=== PATIENT | female | born 1990 | race African-American/Black ===

== ENCOUNTER 2021-03-19 08:31 | Emergency (ER) | payer OTHER, SELFPAY ==
--- OUTSIDE RECORDS SUMMARY | 2021-03-19 08:37 | XMS REPORT | Continuity of Care Document ---
:1990 Author Organization [facility] t Address [address] [place] [address] Care Team Providers Name Role Phone G_Desmond Attending Clinician Unavailable Sandy RABAGO, M Attending Clinician Unavailable Only, Test Attending Clinician Unavailable Siva OTTO, A Attending Clinician SIVA, Allison Attending Clinician Unavailable Doctor Unassigned, Name Attending Clinician Unavailable LEO Attending Clinician Unavailable Holly_Desmond Admitting Clinician Unavailable LEO Admitting Clinician Unavailable Payers Payer Name Policy Type Policy Number Effective Date Expiration Date S ede [place] - [id number] WOMEN'S HE[employer] PROGRAM (MEDICAID) [facility] [id number] 2018 CHOICE (MEDICAID 00:00:00 REPLACEMENT - HMO) Problems Condition Condition Condition Status Onset Resolution Last Treating Co mments Source Name Details Category Date Date Treatment Clinician Date Insertion Insertion Problem Active 2018-03 [place] of of 04-12 da subcutaneo Subcutaneo 00:00: Me dical us us 00 Group contracept Contracept surinder surinder 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 9- da y of y of 00:00: Medical bladder Bladder 00 Group Allergies, Adverse Reactions, Alerts Allergy Allergy Status Severity Reaction(s) Onset Inactive Treating Comm ents Source Name Type Date Date Clinician No Known DA Active U [facility] Allergie 4-22 [facility] 00:[facility]: [facility] 00 l [facility] [place] NO KNOWN Drug Active Univers ALLERGIE Class ity of S [facility] Social History Social Habit Start Date Stop Date Quantity Comments Source Exposure to Not sure [facility] SARS-CoV-2 [facility] (event) Branch Sex Assigned At [facility] y of [facility] Tobacco use and 2018-01-14 2018-01-14 Never used [facility] y of exposure 00:00:00 00:00:00 [facility] Alcohol intake 2018-01-14 2018-01-14 Current [facility] 00:00:00 00:00:00 non-drinker of [facility] alcohol Branch (finding) Smoking Status Start Date Stop Date Source Never smoker [facility] Medications Ordered Filled Start Stop Current Ordering Indication Dosage Frequency Signature Comments Components Source Medication Medication Date Date Medication? Clinician (SIG) Name Name LOESTRIN FE 2017-03 Yes 1{tbl} Take 1 Un lisbeth (LOESTRIN 0-25 tablet by ity o f FE 04/11) 1 00:00: mouth [place] mg-20 mcg 00 daily. Medical (21)/75 mg Branch (7) tablet LOESTRIN FE 2017-03 Yes 1{tbl} Take 1 Un lisbeth (LOESTRIN 0-25 tablet by ity o f FE 04/11) 1 00:00: mouth [place] mg-20 mcg 00 daily. Medical (21)/75 mg Branch (7) tablet LOESTRIN FE 2017-03 Yes 1{tbl} Take 1 Un lisbeth (LOESTRIN 0-25 tablet by ity o f FE 04/11) 1 00:00: mouth [place] mg-20 mcg 00 daily. Medical (21)/75 mg Branch (7) tablet INTEGRA F Yes [facility] 125-1-40-3 8-22 ity of mg Cap 00:00: [place] 00 Medical Branch INTEGRA F Yes [facility] 125-1-40-3 8-22 ity of mg Cap 00:00: [place] 00 Medical Branch INTEGRA F 2018-0 Yes [facility] 125-1-40-3 8-22 ity of mg Cap 00:00: [place] 00 Medical Branch Nexplanon Nexplanon No 1implan Nexplanon [place] 68 mg 68 mg t(s) 68 mg da subdermal subdermal subdermal Medical implant implant implant Group Inject 1 Inject 1 Inject 1 implant by implant by implant by subcutaneou subcutaneou subcutaneo s route. s route. us route. Immunizations Ordered Filled Immunization Date Status Comments Sourc e Immunization Name Name Influenza Virus 2018-01-14 Completed Universit y of Vaccine Quad .5 mL 00:00:00 [facility] 6+ MO Branch Influenza Virus 2018-01-14 Completed Universit y of Vaccine Quad .5 mL 00:00:00 [facility] 6+ MO Branch Influenza Virus 2018-01-14 Completed Universit y of Vaccine Quad .5 mL 00:00:00 [facility] 6+ MO Branch Vital Signs Vital Name Observation Time Observation Value Comments Source BP Diastolic 2020-10-12 00:00:00 115 mm[Hg] [facility] Height 2020-10-12 00:00:00 66 [in_i] [facility] BMI (Body Mass 2020-10-12 00:00:00 27.6 kg/m2 [facility] Medical Index) Group BP Systolic 2020-10-12 00:00:00 150 mm[Hg] [facility] Body Weight 2020-10-12 00:00:00 170.8 [lb_av] [facility] BMI (Body Mass 2020-10-08 00:00:00 27.7 kg/m2 [facility] Medical Index) Group BP Systolic 2020-10-08 00:00:00 121 mm[Hg] [facility] Body Weight 2020-10-08 00:00:00 171.6 [lb_av] [facility] BP Diastolic 2020-10-08 00:00:00 78 mm[Hg] [facility] Height 2020-10-08 00:00:00 66 [in_i] [facility] BP Diastolic 2019-02-09 00:00:00 83 mm[Hg] [facility] Height 2019-02-09 00:00:00 66 [in_i] [facility] BMI (Body Mass 2019-02-09 00:00:00 31.3 kg/m2 [facility] Medical Index) Group BP Systolic 2019-02-09 00:00:00 133 mm[Hg] [facility] Body Weight 2019-02-09 00:00:00 194 [lb_av] [facility] BP Diastolic 2019-01-10 00:00:00 100 mm[Hg] [facility] Height 2019-01-10 00:00:00 66 [in_i] [facility] BMI (Body Mass 2019-01-10 00:00:00 30.5 kg/m2 [facility] Medical Index) Group BP Systolic 2019-01-10 00:00:00 138 mm[Hg] [facility] Body Weight 2019-01-10 00:00:00 189 [lb_av] [facility] BP Diastolic 2018-12-07 00:00:00 83 mm[Hg] [facility] Height 2018-12-07 00:00:00 66 [in_i] [facility] BP Systolic 2018-12-07 00:00:00 126 mm[Hg] [facility] Body Weight 2018-12-07 00:00:00 203 [lb_av] [facility] BP Diastolic 2018-11-30 00:00:00 86 mm[Hg] [facility] Height 2018-11-30 00:00:00 66 [in_i] [facility] BMI (Body Mass 2018-11-30 00:00:00 33.2 kg/m2 [facility] Medical Index) Group BP Systolic 2018-11-30 00:00:00 134 mm[Hg] [facility] Body Weight 2018-11-30 00:00:00 206 [lb_av] [facility] BP Diastolic 2018-11-24 00:00:00 79 mm[Hg] [facility] Height 2018-11-24 00:00:00 66 [in_i] [facility] BMI (Body Mass 2018-11-24 00:00:00 32.7 kg/m2 [facility] housing officer Medical Index) Group BP Systolic 2018-11-24 00:00:00 113 mm[Hg] [facility] Body Weight 2018-11-24 00:00:00 202.9 [lb_av] [facility] BP Diastolic 2018-11-23 00:00:00 80 mm[Hg] [facility] Height 2018-11-23 00:00:00 66 [in_i] [facility] BMI (Body Mass 2018-11-23 00:00:00 33 kg/m2 [facility] housing officer Medical Index) Group BP Systolic 2018-11-23 00:00:00 129 mm[Hg] [facility] Body Weight 2018-11-23 00:00:00 204.3 [lb_av] [facility] BP Diastolic 2018-11-16 00:00:00 71 mm[Hg] [facility] Height 2018-11-16 00:00:00 66 [in_i] [facility] BMI (Body Mass 2018-11-16 00:00:00 33.2 kg/m2 [facility] housing officer Medical Index) Group BP Systolic 2018-11-16 00:00:00 132 mm[Hg] [facility] Body Weight 2018-11-16 00:00:00 205.9 [lb_av] [facility] BP Diastolic 2018-11-09 00:00:00 83 mm[Hg] [facility] Height 2018-11-09 00:00:00 66 [in_i] [facility] BMI (Body Mass 2018-11-09 00:00:00 33.1 kg/m2 [facility] housing officer Medical Index) Group BP Systolic 2018-11-09 00:00:00 141 mm[Hg] [facility] Body Weight 2018-11-09 00:00:00 205.3 [lb_av] [facility] BP Diastolic 2018-10-26 00:00:00 72 mm[Hg] [facility] Height 2018-10-26 00:00:00 66 [in_i] [facility] BP Systolic 2018-10-26 00:00:00 118 mm[Hg] [facility] Body Weight 2018-10-26 00:00:00 200.1 [lb_av] [facility] BP Diastolic 2018-10-12 00:00:00 82 mm[Hg] [facility] Height 2018-10-12 00:00:00 66 [in_i] [facility] BMI (Body Mass 2018-10-12 00:00:00 32[facility]3 [facility] BP Systolic 2018-10-12 00:00:00 117 mm[Hg] [facility] Body Weight 2018-10-12 00:00:00 200 [lb_av] [facility] BP Diastolic 2018-09-28 00:00:00 70 mm[Hg] [facility] Height 2018-09-28 00:00:00 66 [in_i] [facility] BMI (Body Mass 2018-09-28 00:00:00 32 [facility] BP Systolic 2018-09-28 00:00:00 138 mm[Hg] [facility] Body Weight 2018-09-28 00:00:00 198 [lb_av] [facility] BP Diastolic 2018-09-21 00:00:00 72 mm[Hg] [facility] Height 2018-09-21 00:00:00 66 [in_i] [facility] BMI (Body Mass 2018-09-21 00:00:00 32 [facility] BP Systolic 2018-09-21 00:00:00 117 mm[Hg] [facility] Body Weight 2018-09-21 00:00:00 198 [lb_av] [facility] Procedures Procedure Date / Time Performed Performing Clinician [facility] ASSIGNMENT OF BENEFITS 2020-02-14 20:17:44 Doctor Unassigned, No [facility] US, obstetric, limited 2018-11-30 00:00[facility], [facility] 2018-11-23 00:00:00 [facility] ULTRASOUND REPEAT 2018-09-28 00:00:00 [facility] Encounters Start End Encounter Admission Attending Care Care Encounter Source Date/Time Date/Time Type Type Clinicians Facility Department ID 2020-10-12 2020-10-12 Outpatient G_Pappas [facility] 2020 [place] 10:43:00 10:43:00 0723 [facility] 2020-10-12 2020-10-12 Toni CHONG [place] - [id number] M atagoelisa 00:00:00 00:00:00 Discovery malathi Logan MD: [address] [facility] [address] [address] , Ph. [phone] 2020-10-08 2020-10-08 Outpatient G_Pappas [facility] 2020 [place] 04:10:00 04:10:00 0719 [facility] 2020-10-08 2020-10-08 Toni CHONG [place] - [id number] M derek 00:00:00 00:00:00 Discovery malathi Logan MD: [address] [facility] [address] [address] , Ph. [phone] 2020-10-02 2020-10-02 Outpatient G_Pappas [facility] 2020 [place] 10:38:00 10:38:00 0713 [facility] 2020-09-25 2020-09-25 Outpatient G_Pappas [facility] 2020 [place] 09:52:00 09:52:00 0706 [facility] 2020-05-04 2020-05-04 Outpatient G_Pappas [facility] 2020 [place] 11:00:00 11:00:00 [id number] [facility] 2020-03-08 2020-03-08 Outpatient G_Pappas [facility] 2019 [place] 09:39:00 09:39:00 1217 [facility] 2020-02-15 2020-02-15 Telephone Stella Delgado [id number] [facility] 00:00:00 00:00:00 ROSCOE [id number] [facility] [id number] Manuelito as [id number] [facility] 019 Branch 2020-02-14 2020-02-14 Laboratory Only, Adc Test [facility] [id number] Univers 14:21:32 14:36:32 Only Ronald Paniagua [id number] ity [facility] [id number] [facility] [id number] [facility] 353 Branch 2020-02-14 2020-02-14 Outpatient R [facility] [id number] Univers 14:30:00 14:30:00 [id number] ity [facility] 2020-02-14 2020-02-14 Outpatient R PANIAGUA [facility] [id number] Univers 14:30:00 14:30:00 RONALD [facility] 2020-02-14 2020-02-14 Orders Doctor GARCIA [id number] Univers 00:00:00 00:00:00 Only Unassigned, ROSCOE [id number] ity of [facility] [id number] Manuelito as [id number] [facility] 009 Branch 2020-02-08 2020-02-08 Outpatient G_Pappas [facility] 2019 [place] 02:42:00 02:42:00 1118 [facility] 2019-02-26 2019-02-26 Outpatient G_Pappas [facility] 2019 [place] 12:21:00 12:21:00 0326 [facility] 2019-02-26 2019-02-26 Outpatient G_Pappas MM MM 2019 [place] 12:21:00 12:21:00 0605 [facility] 2019-02-26 2019-02-26 Outpatient G_Pappas [facility] MM 2019 [place] 12:21:00 12:21:00 0608 [facility] 2019-02-26 2019-02-26 Outpatient G_Pappas [facility] 2019 [place] 12:21:00 12:21:00 0611 [facility] 2019-02-09 2019-02-09 Gissell Kearns [facility] [place] - [id number] [place] 00:00:00 00:00:00 Discovery malathi Stahl WHNP: [address] [facility] [address] [address] , Ph. [phone] 2019-02-07 2019-02-07 Outpatient [facility] 834 [place] 05:45:00 05:45:00 SSA 0609 da [facility] 2019-01-10 2019-01-10 Michelle MMG [place] - [id number] M atagor 00:00:00 00:00:00 Lyle Quinn Medical [facility] pranav MD: [address] [place] [address] , Ph. [phone] 2018-12-07 2018-12-07 Michelle [facility] [place] - [id number] M atagor 00:00:00 00:00:00 Lyle Quinn Medical Medicallison rock MD: [address] [place] [address] , Ph. [phone] 2018-11-30 2018-11-30 Michelle [facility] [place] - [id number] M atagor 00:00:00 00:00:00 Lyle Quinn Medical Med[facility] pranav OTTO: [address] [place] [address] , Ph. [phone] 2018-11-24 2018-11-24 Gissell Kearns [facility] [place] - [id number] [place] 00:00:00 00:00:00 Discovery Bassem StahlNP: [address] [facility] [address] [address] , Ph. [phone] 2018-11-23 2018-11-23 Gissell Kearns [facility] [place] - [id number] [place] 00:00:00 00:00:00 Discovery Favio da WHNP: [address] [facility] [address] [address] , Ph. [phone] 2018-11-16 2018-11-16 Michelle [facility] [place] - [id number] M at[place]or 00:00:00 00:00:00 Lyle Quinn Medical Medicallison rock MD: [address] [place] [address], [place] [address] , Ph. [phone] 2018-11-09 2018-11-09 Michelle [facility] [place] - [id number] M at[place]or 00:00:00 00:00:00 Lyle Quinn Medical Medica pranav MD: [address] [place] [address], [place] [address] , Ph. [phone] 2018-10-26 2018-10-26 [facility] [place] - [id number] M at[place] 00:00:00 00:00:00 Renee Martinez Medicallison rock MD: [address] [place] [address], [place] [address] , Ph. [phone] 2018-10-12 2018-10-12 [facility] [place] - [id number] M at[place] 00:00:00 00:00:00 Renee Martinez Medicallison rock MD: [address] [place] [address], [place] [address] , Ph. [phone] 2018-09-28 2018-09-28 [facility] [place] - [id number] M at[place] 00:00:00 00:00:00 Lyle Quinn Medical Medicallison rock MD: [address] [place] [address], [place] [address] , Ph. [phone] 2018-09-24 2018-09-24 [facility] [place] - [id number] M at[place] 00:00:00 00:00:00 Lyle Quinn Medical Medicallison rock MD: [address] [place] [address], [place] [address] , Ph. [phone] 2018-09-21 2018-09-21 Michelle [facility] [place] - [id number] M derek 00:00:00 00:00:00 Lyle Quinn, Medical Medica pranav OTTO: [address] [facility] [place], OBGYN [address], [place] [address] , Ph. [phone] Results Test Description Test Time Test Comments Results Result Comments Source pap, LB + HR HPV 2020-10-09 00:00:00 Test Item Value Reference Range Interpretation Comme nts TP highrisk HPV,16/18 (test code = TP highrisk HPV,16/18) normal HPV (test code = HPV) normal [facility]dipstick) panel - [id number] 15:50:00 Test Item Value Reference Range Interpretation Comments Leukocytes (test code = Leukocytes) Negative Nitrite (test code = Nitrite) negative Urobilinogen (test code = .2 Urobilinogen) Protein (test code = Protein) Trace pH (test code = pH) 5.5 Blood (test code = Blood) Negative Specific [place] (test code = 1.030 Specific [place]) Ketone (test code = Ketone) Small Bilirubin (test code = Bilirubin) Negative Glucose (test code = Glucose) Negative Appearance (test code = Appearance) Clear Color (test code = Color) Yellow [facility] macro (dipstick) panel - [id number] 15:50:00 Test Item Value Reference Range Interpretation Comments Leukocytes (test code = Leukocytes) Negative Nitrite (test code = Nitrite) negative Urobilinogen (test code = .2 Urobilinogen) Protein (test code = Protein) Trace pH (test code = pH) 5.5 Blood (test code = Blood) Negative Specific [place] (test code = 1.030 Specific [place]) Ketone (test code = Ketone) Small Bilirubin (test code = Bilirubin) Negative Glucose (test code = Glucose) Negative Appearance (test code = Appearance) Clear Color (test code = Color) Yellow [facility]lamydia trachomatis+Neisseria gonorrhoeae rRNA [Presence] in Unspecified specimen by [id number] 01:53:00 Test Item Value Reference Range Interpretation Comments Chlamydia sp Ag [Presence] in CT not detected Unspecified specimen (test code = 86816-4) [id number] (test code = fhl2755) NG not detected [facility], [id number] 14:53:50 Test Item Value Reference Range Interpretation Comments Test (test code = negative Test) [facility] W Auto Differential panel - [id number] 08:30:00 Test Item Value Reference Range Interpretation Comments white blood count (test code = 5.9 K/uL 4.0-11.5 white blood count) red blood count (test code = red 4.63 M/uL 3.80-5.20 blood count) hemoglobin (test code = 11.1 g/dL 10.5-15.7 hemoglobin) hematocrit (test code = 36.9 % 34.0-50.0 hematocrit) Erythrocyte mean corpuscular 79.7 fL 86-100 L volume [Entitic volume] (test code = 63100-6) mean corpuscular hemoglobin (test 24.0 pg 26.2-33.4 L code = mean corpuscular hemoglobin) mean corpuscular HGB conc (test 30.1 g/dL 30-34 code = mean corpuscular HGB conc) red cell distribution width (test 15.7 % 12.0-15.5 H code = red cell distribution width) platelet count (test code = 223 K/uL 165-450 platelet count) mean platelet volume (test code = 13.6 fL 9.4-12.6 H mean platelet volume) Neutrophils.segmented/100 60.7 % 44.4-80.1 leukocytes in Blood (test code = 25028-2) Granulocytes Immature [#/volume] 0.0 K/uL 0.0-0.03 in Blood (test code = 15238-2) lymphocyte% (test code = 28.6 % 10.0-50.0 lymphocyte%) mono % (test code = mono %) 6.8 % 3.6-12.0 eos % (test code = eos %) 3.2 % 0.0-5.4 Basophils/100 leukocytes in 0.5 % 0.1-1.2 Unspecified specimen (test code = 27044-6) Neutrophils.band form [#/volume] 3.57 K/uL 1.56-6.13 in Blood (test code = 68534-2) Lymphocytes [#/volume] in 1.7 K/uL 1.18-3.74 Unspecified specimen by Automated count (test code = 67640-6) mono # (test code = mono #) 0.40 K/uL 0.24-0.86 eos # (test code = eos #) 0.19 K/uL 0.04-0.36 basophil # (test code = basophil 0.03 K/uL 0.01-0.08 #) NRBC% (test code = NRBC%) 0 /100 WBC 0-0.2 NRBC# (test code = NRBC#) 0 K/uL [facility] panel, [id number] 08:30:00 NeutrophilsBandLymphocyteAtypical LymphMonocyteEosinophilBasophilMetamyelocyteMyelocytePlatelet EstimatePlatelet MorphologyHypochromasiaAnisocytosisMacrocytosisToxic GranulationToxic VacuolationField [facility] W Auto Differential panel - Blood 2018-12-09 10:17:00 Test Item Value Reference Range Interpretation Comments white blood count (test code = 10.9 K/uL 4.0-11.5 white blood count) red blood count (test code = red 3.40 M/uL 3.80-5.20 L blood count) hemoglobin (test code = 8.8 g/dL 10.5-15.7 L hemoglobin) hematocrit (test code = 27.4 % 34.0-50.0 L hematocrit) Erythrocyte mean corpuscular 80.6 fL 86-100 L volume [Entitic volume] (test code = 69064-8) mean corpuscular hemoglobin (test 25.9 pg 26.2-33.4 L code = mean corpuscular hemoglobin) mean corpuscular HGB conc (test 32.1 g/dL 30-34 code = mean corpuscular HGB conc) red cell distribution width (test 13.8 % 12.0-15.5 code = red cell distribution width) platelet count (test code = 160 K/uL 165-450 L platelet count) mean platelet volume (test code = 12.8 fL 9.4-12.6 H mean platelet volume) Neutrophils.segmented/100 76.1 % 44.4-80.1 leukocytes in Blood (test code = 02265-2) Granulocytes Immature [#/volume] 0.0 K/uL 0.0-0.03 in Blood (test code = 64187-8) lymphocyte% (test code = 14.6 % 10.0-50.0 lymphocyte%) mono % (test code = mono %) 7.3 % 3.6-12.0 eos % (test code = eos %) 1.3 % 0.0-5.4 Basophils/100 leukocytes in 0.4 % 0.1-1.2 Unspecified specimen (test code = 76893-8) Neutrophils.band form [#/volume] 8.32 K/uL 1.56-6.13 H in Blood (test code = 14461-9) Lymphocytes [#/volume] in 1.6 K/uL 1.18-3.74 Unspecified specimen by Automated count (test code = 15527-8) mono # (test code = mono #) 0.80 K/uL 0.24-0.86 eos # (test code = eos #) 0.14 K/uL 0.04-0.36 basophil # (test code = basophil 0.04 K/uL 0.01-0.08 #) NRBC% (test code = NRBC%) 0 /100 WBC 0-0.2 NRBC# (test code = NRBC#) 0 K/uL [facility] W Auto Differential panel - [id number] 10:17:00 Test Item Value Reference Range Interpretation Comments white blood count (test code = 10.9 K/uL 4.0-11.5 white blood count) red blood count (test code = red 3.40 M/uL 3.80-5.20 L blood count) hemoglobin (test code = 8.8 g/dL 10.5-15.7 L hemoglobin) hematocrit (test code = 27.4 % 34.0-50.0 L hematocrit) Erythrocyte mean corpuscular 80.6 fL 86-100 L volume [Entitic volume] (test code = 99370-6) mean corpuscular hemoglobin (test 25.9 pg 26.2-33.4 L code = mean corpuscular hemoglobin) mean corpuscular HGB conc (test 32.1 g/dL 30-34 code = mean corpuscular HGB conc) red cell distribution width (test 13.8 % 12.0-15.5 code = red cell distribution width) platelet count (test code = 160 K/uL 165-450 L platelet count) mean platelet volume (test code = 12.8 fL 9.4-12.6 H mean platelet volume) Neutrophils.segmented/100 76.1 % 44.4-80.1 leukocytes in Blood (test code = 20854-2) Granulocytes Immature [#/volume] 0.0 K/uL 0.0-0.03 in Blood (test code = 70784-2) lymphocyte% (test code = 14.6 % 10.0-50.0 lymphocyte%) mono % (test code = mono %) 7.3 % 3.6-12.0 eos % (test code = eos %) 1.3 % 0.0-5.4 Basophils/100 leukocytes in 0.4 % 0.1-1.2 Unspecified specimen (test code = 09363-7) Neutrophils.band form [#/volume] 8.32 K/uL 1.56-6.13 H in Blood (test code = 80703-0) Lymphocytes [#/volume] in 1.6 K/uL 1.18-3.74 Unspecified specimen by Automated count (test code = 68045-7) mono # (test code = mono #) 0.80 K/uL 0.24-0.86 eos # (test code = eos #) 0.14 K/uL 0.04-0.36 basophil # (test code = basophil 0.04 K/uL 0.01-0.08 #) NRBC% (test code = NRBC%) 0 /100 WBC 0-0.2 NRBC# (test code = NRBC#) 0 K/uL [facility] complete panel - [id number] 12:50:00 Test Item Value Reference Range Interpretation Comments Color of Urine by Auto light yellow (test code = 34208-2) Appearance of Urine (test clear clear code = 5767-9) Glucose [Presence] in negative negative Urine by Automated test strip (test code = 54395-0) Bilirubin.total negative negative [Mass/volume] in Urine (test code = 1977-) Ketones [Mass/volume] in negative negative Urine by Automated test strip (test code = 79435-1) Specific gravity of Urine 1.021 1.003-1.030 by Automated test strip (test code = 17449-9) blood urine (test code = negative negative blood urine) pH of Urine (test code = 7.000 5-9 2756-5) protein urine (UA) (test trace negative code = protein urine (UA)) Urobilinogen [Presence] =2.0 0.2-1.0 H in Urine (test code = 60298-2) Nitrite [Presence] in negative negative Urine by Test strip (test code = 5802-4) Leukocyte esterase =2 negative H [Presence] in Urine by Automated test strip (test code = 86369-3) Erythrocytes [#/volume] <1 0-5 in Urine by Automated count (test code = 798-9) Leukocytes [#/area] in =11-14 0-5 H Urine sediment by Automated count (test code = 23752-0) Epithelial cells =6-10 0-5 [Presence] in Urine sediment by Light microscopy (test code = 73909-9) Bacteria identified in large (3 none detect H Urine by Culture (test code = 630-4) Casts [#/area] in Urine =6-10 none detect H sediment by Automated count (test code = 51119-2) urine culture added? yes (test code = urine culture added?) path casts,U (test code = fine granular (6-10 none detect A path casts,U) [facility] Urine by [id number] 12:50:00Bacteria Ur [facility] GroupUrinalysis complete panel - Urine 2018-12-08 12:50:00 Test Item Value Reference Range Interpretation Comments Color of Urine by Auto light yellow (test code = 27682-8) Appearance of Urine (test clear clear code = 5767-9) Glucose [Presence] in negative negative Urine by Automated test strip (test code = 70479-8) Bilirubin.total negative negative [Mass/volume] in Urine (test code = 1977-08) Ketones [Mass/volume] in negative negative Urine by Automated test strip (test code = 87703-4) Specific gravity of Urine 1.021 1.003-1.030 by Automated test strip (test code = 49319-8) blood urine (test code = negative negative blood urine) pH of Urine (test code = 7.000 5-9 2756-5) protein urine (UA) (test trace negative code = protein urine (UA)) Urobilinogen [Presence] =2.0 0.2-1.0 H in Urine (test code = 15165-1) Nitrite [Presence] in negative negative Urine by Test strip (test code = 5802-4) Leukocyte esterase =2 negative H [Presence] in Urine by Automated test strip (test code = 51546-8) Erythrocytes [#/volume] <1 0-5 in Urine by Automated count (test code = 798-9) Leukocytes [#/area] in =11-14 0-5 H Urine sediment by Automated count (test code = 06586-4) Epithelial cells =6-10 0-5 [Presence] in Urine sediment by Light microscopy (test code = 80002-1) Bacteria identified in large (3 none detect H Urine by Culture (test code = 630-4) Casts [#/area] in Urine =6-10 none detect H sediment by Automated count (test code = 65503-0) urine culture added? yes (test code = urine culture added?) path casts,U (test code = fine granular (6-10 none detect A path casts,U) [facility] Urine by [id number] 12:50:00Bacteria Ur [facility] W Auto Differential panel - [id number] 10:05:00 Test Item Value Reference Range Interpretation Comments white blood count (test code = 9.1 K/uL 4.0-11.5 white blood count) red blood count (test code = red 4.03 M/uL 3.80-5.20 blood count) hemoglobin (test code = 10.1 g/dL 10.5-15.7 L hemoglobin) hematocrit (test code = 31.7 % 34.0-50.0 L hematocrit) Erythrocyte mean corpuscular 78.7 fL 86-100 L volume [Entitic volume] (test code = 10117-8) mean corpuscular hemoglobin (test 25.1 pg 26.2-33.4 L code = mean corpuscular hemoglobin) mean corpuscular HGB conc (test 31.9 g/dL 30-34 code = mean corpuscular HGB conc) red cell distribution width (test 13.7 % 12.0-15.5 code = red cell distribution width) platelet count (test code = 164 K/uL 165-450 L platelet count) mean platelet volume (test code = 12.0 fL 9.4-12.6 mean platelet volume) Neutrophils.segmented/100 77.8 % 44.4-80.1 leukocytes in Blood (test code = 44243-1) Granulocytes Immature [#/volume] 0.0 K/uL 0.0-0.03 in Blood (test code = 25582-4) lymphocyte% (test code = 14.3 % 10.0-50.0 lymphocyte%) mono % (test code = mono %) 6.8 % 3.6-12.0 eos % (test code = eos %) 0.5 % 0.0-5.4 Basophils/100 leukocytes in 0.3 % 0.1-1.2 Unspecified specimen (test code = 07009-0) Neutrophils.band form [#/volume] 7.09 K/uL 1.56-6.13 H in Blood (test code = 70110-1) Lymphocytes [#/volume] in 1.3 K/uL 1.18-3.74 Unspecified specimen by Automated count (test code = 65132-0) mono # (test code = mono #) 0.62 K/uL 0.24-0.86 eos # (test code = eos #) 0.05 K/uL 0.04-0.36 basophil # (test code = basophil 0.03 K/uL 0.01-0.08 #) NRBC% (test code = NRBC%) 0 /100 WBC 0-0.2 NRBC# (test code = NRBC#) 0 K/uL [facility] type and Indirect antibody screen panel - Blood 2018-12-08 10:05:00 Test Item Value Reference Range Interpretation Comments Rh [Type] in Blood (test code = 3+ 40550-1) ABO and Rh group panel - Blood O positive (test code = 06751-4) [facility] HospitalReagin Ab [Presence] in Serum by [id number] 10:05:00 Test Item Value Reference Range Interpretation Comments Reagin Ab [Presence] in Serum by nonreactive nonreactive RPR (test code = 38257-1) [facility] HospitalHepatitis B virus surface Ag [Presence] in Serum 2018-12-08 10:05:00 Test Item Value Reference Range Interpretation Comments .hepatitis B surface antigen (test negative negative code = .hepatitis B surface antigen) [facility] W Auto Differential panel - [id number] 10:05:00 Test Item Value Reference Range Interpretation Comments white blood count (test code = 9.1 K/uL 4.0-11.5 white blood count) red blood count (test code = red 4.03 M/uL 3.80-5.20 blood count) hemoglobin (test code = 10.1 g/dL 10.5-15.7 L hemoglobin) hematocrit (test code = 31.7 % 34.0-50.0 L hematocrit) Erythrocyte mean corpuscular 78.7 fL 86-100 L volume [Entitic volume] (test code = 23478-2) mean corpuscular hemoglobin (test 25.1 pg 26.2-33.4 L code = mean corpuscular hemoglobin) mean corpuscular HGB conc (test 31.9 g/dL 30-34 code = mean corpuscular HGB conc) red cell distribution width (test 13.7 % 12.0-15.5 code = red cell distribution width) platelet count (test code = 164 K/uL 165-450 L platelet count) mean platelet volume (test code = 12.0 fL 9.4-12.6 mean platelet volume) Neutrophils.segmented/100 77.8 % 44.4-80.1 leukocytes in Blood (test code = 86342-3) Granulocytes Immature [#/volume] 0.0 K/uL 0.0-0.03 in Blood (test code = 48878-1) lymphocyte% (test code = 14.3 % 10.0-50.0 lymphocyte%) mono % (test code = mono %) 6.8 % 3.6-12.0 eos % (test code = eos %) 0.5 % 0.0-5.4 Basophils/100 leukocytes in 0.3 % 0.1-1.2 Unspecified specimen (test code = 82353-6) Neutrophils.band form [#/volume] 7.09 K/uL 1.56-6.13 H in Blood (test code = 99001-5) Lymphocytes [#/volume] in 1.3 K/uL 1.18-3.74 Unspecified specimen by Automated count (test code = 99724-2) mono # (test code = mono #) 0.62 K/uL 0.24-0.86 eos # (test code = eos #) 0.05 K/uL 0.04-0.36 basophil # (test code = basophil 0.03 K/uL 0.01-0.08 #) NRBC% (test code = NRBC%) 0 /100 WBC 0-0.2 NRBC# (test code = NRBC#) 0 K/uL [facility] HospitalBlood type and Indirect antibody screen panel - Blood 2018-12-08 10:05:00 Test Item Value Reference Range Interpretation Comments Rh [Type] in Blood (test code = 3+ 53340-9) ABO and Rh group panel - Blood O positive (test code = 66925-7) [facility] HospitalReagin Ab [Presence] in Serum by [id number] 10:05:00 Test Item Value Reference Range Interpretation Comments Reagin Ab [Presence] in Serum by nonreactive nonreactive RPR (test code = 33101-3) [facility] HospitalHepatitis B virus surface Ag [Presence] in Serum 2018-12-08 10:05:00 Test Item Value Reference Range Interpretation Comments .hepatitis B surface antigen (test negative negative code = .hepatitis B surface antigen) [facility] HospitalUrinalysis macro (dipstick) panel - [id number] 09:20:00 Test Item Value Reference Range Interpretation Comments Leukocytes (test code = Small Leukocytes) Nitrite (test code = negative Nitrite) Urobilinogen (test code = 1 Urobilinogen) Protein (test code = Negative Protein) pH (test code = pH) 7.0 Blood (test code = Blood) Hemolyzed: Trace Specific [place] (test code 1.015 = Specific [place]) Ketone (test code = Ketone) Negative Bilirubin (test code = Negative Bilirubin) Glucose (test code = Negative Glucose) Appearance (test code = Clear Appearance) Color (test code = Color) Yellow [facility] HospitalUrinalysis macro (dipstick) panel - [id number] 09:20:00 Test Item Value Reference Range Interpretation Comments Leukocytes (test code = Small Leukocytes) Nitrite (test code = negative Nitrite) Urobilinogen (test code = 1 Urobilinogen) Protein (test code = Negative Protein) pH (test code = pH) 7.0 Blood (test code = Blood) Hemolyzed: Trace Specific [place] (test code 1.015 = Specific [place]) Ketone (test code = Ketone) Negative Bilirubin (test code = Negative Bilirubin) Glucose (test code = Negative Glucose) Appearance (test code = Clear Appearance) Color (test code = Color) Yellow [facility] HospitalUrinalysis macro (dipstick) panel - [id number] 14:55:00 Test Item Value Reference Range Interpretation Comments Leukocytes (test code = Leukocytes) Large Nitrite (test code = Nitrite) negative Urobilinogen (test code = .2 Urobilinogen) Protein (test code = Protein) Trace pH (test code = pH) 5.5 Blood (test code = Blood) Moderate Specific [place] (test code = 1.020 Specific [place]) Ketone (test code = Ketone) Negative Bilirubin (test code = Bilirubin) Negative Glucose (test code = Glucose) Negative Appearance (test code = Appearance) Clear Color (test code = Color) Yellow [facility] HospitalUrinalysis macro (dipstick) panel - [id number] 14:55:00 Test Item Value Reference Range Interpretation Comments Leukocytes (test code = Leukocytes) Large Nitrite (test code = Nitrite) negative Urobilinogen (test code = .2 Urobilinogen) Protein (test code = Protein) Trace pH (test code = pH) 5.5 Blood (test code = Blood) Moderate Specific [place] (test code = 1.020 Specific [place]) Ketone (test code = Ketone) Negative Bilirubin (test code = Bilirubin) Negative Glucose (test code = Glucose) Negative Appearance (test code = Appearance) Clear Color (test code = Color) Yellow [facility] HospitalUr[facility]ysis macro (dipstick) panel - [id number] 10:46:04 Test Item Value Reference Range Interpretation Comments Leukocytes (test code = Leukocytes) Trace Nitrite (test code = Nitrite) negative Urobilinogen (test code = 1 Urobilinogen) Protein (test code = Protein) Negative pH (test code = pH) 7.0 Blood (test code = Blood) Negative Specific [place] (test code = 1.020 Specific [place]) Ketone (test code = Ketone) Negative Bilirubin (test code = Bilirubin) Negative Glucose (test code = Glucose) Negative Appearance (test code = Appearance) Clear Color (test code = Color) Yellow [facility] HospitalUr[facility]ysis macro (dipstick) panel - [id number] 10:46:04 Test Item Value Reference Range Interpretation Comments Leukocytes (test code = Leukocytes) Trace Nitrite (test code = Nitrite) negative Urobilinogen (test code = 1 Urobilinogen) Protein (test code = Protein) Negative pH (test code = pH) 7.0 Blood (test code = Blood) Negative Specific [place] (test code = 1.020 Specific [place]) Ketone (test code = Ketone) Negative Bilirubin (test code = Bilirubin) Negative Glucose (test code = Glucose) Negative Appearance (test code = Appearance) Clear Color (test code = Color) Yellow [facility] HospitalUrinalysis macro (dipstick) panel - [id number] 10:46:04 Test Item Value Reference Range Interpretation Comments Leukocytes (test code = Leukocytes) Trace Nitrite (test code = Nitrite) negative Urobilinogen (test code = 1 Urobilinogen) Protein (test code = Protein) Negative pH (test code = pH) 7.0 Blood (test code = Blood) Negative Specific [place] (test code = 1.020 Specific [place]) Ketone (test code = Ketone) Negative Bilirubin (test code = Bilirubin) Negative Glucose (test code = Glucose) Negative Appearance (test code = Appearance) Clear Color (test code = Color) Yellow [facility] HospitalUr[facility]ysis macro (dipstick) panel - [id number] 10:46:04 Test Item Value Reference Range Interpretation Comments Leukocytes (test code = Leukocytes) Trace Nitrite (test code = Nitrite) negative Urobilinogen (test code = 1 Urobilinogen) Protein (test code = Protein) Negative pH (test code = pH) 7.0 Blood (test code = Blood) Negative Specific [place] (test code = 1.020 Specific [place]) Ketone (test code = Ketone) Negative Bilirubin (test code = Bilirubin) Negative Glucose (test code = Glucose) Negative Appearance (test code = Appearance) Clear Color (test code = Color) Yellow [facility] HospitalUrinalysis complete panel - [id number] 04:20:00 Test Item Value Reference Range Interpretation Comments Color of Urine by Auto yellow (test code = 43437-6) Appearance of Urine (test SL cloudy clear A code = 5767-9) Glucose [Mass/volume] in negative negative Urine (test code = 2350-7) bilirubin, urine (test code small negative H = bilirubin, urine) Bilirubin [Presence] in negative negative Urine by Confirmatory method (test code = 53879-7) ketone, urine (test code = small, 15 negative H ketone, urine) Specific gravity of Urine 1.025 1.003-1.030 by Automated test strip (test code = 05716-7) Hemoglobin [Presence] in negative negative Urine by Test strip (test code = 5794-3) pH of Urine (test code = 6.500 5-9 2756-5) protein urine (UA) (test =1+ (30 negative H code = protein urine (UA)) Urobilinogen [Presence] in 1.0 E.U./dL 0.2-1.0 Urine (test code = 98911-4) Nitrite [Presence] in Urine negative negative by Test strip (test code = 5802-4) urine leukocyte esterase =1 negative H (test code = urine leukocyte esterase) Erythrocytes [Presence] in none seen 0-5 Urine (test code = 87966-3) WBC, urine (test code = =5-9 0-5 H WBC, urine) bacteria, urine (test code moderate (2 none detect H = bacteria, urine) Casts [#/area] in Urine =2-5 none detect sediment by Automated count (test code = 87145-7) urine culture added? (test no. contaminated. code = urine culture added?) squamous epithelial cell more than 25 0-5 urine (test code = squamous epithelial cell urine) mucus, urine (test code = =1 none detect mucus, urine) [facility] HospitalUrinalysis complete panel - [id number] 04:20:00 Test Item Value Reference Range Interpretation Comments Color of Urine by Auto yellow (test code = 70174-4) Appearance of Urine (test SL cloudy clear A code = 5767-9) Glucose [Mass/volume] in negative negative Urine (test code = 2350-7) bilirubin, urine (test code small negative H = bilirubin, urine) Bilirubin [Presence] in negative negative Urine by Confirmatory method (test code = 46660-6) ketone, urine (test code = small, 15 negative H ketone, urine) Specific gravity of Urine 1.025 1.003-1.030 by Automated test strip (test code = 68099-0) Hemoglobin [Presence] in negative negative Urine by Test strip (test code = 5794-3) pH of Urine (test code = 6.500 5-9 2756-5) protein urine (UA) (test =1+ (30 negative H code = protein urine (UA)) Urobilinogen [Presence] in 1.0 E.U./dL 0.2-1.0 Urine (test code = 68694-5) Nitrite [Presence] in Urine negative negative by Test strip (test code = 5802-4) urine leukocyte esterase =1 negative H (test code = urine leukocyte esterase) Erythrocytes [Presence] in none seen 0-5 Urine (test code = 85617-9) WBC, urine (test code = =5-9 0-5 H WBC, urine) bacteria, urine (test code moderate (2 none detect H = bacteria, urine) Casts [#/area] in Urine =2-5 none detect sediment by Automated count (test code = 95573-5) urine culture added? (test no. contaminated. code = urine culture added?) squamous epithelial cell more than 25 0-5 urine (test code = squamous epithelial cell urine) mucus, urine (test code = =1 none detect mucus, urine) [facility] HospitalUr[facility]ysis complete panel - [id number] 04:20:00 Test Item Value Reference Range Interpretation Comments Color of Urine by Auto yellow (test code = 38457-7) Appearance of Urine (test SL cloudy clear A code = 5767-9) Glucose [Mass/volume] in negative negative Urine (test code = 2350-7) bilirubin, urine (test code small negative H = bilirubin, urine) Bilirubin [Presence] in negative negative Urine by Confirmatory method (test code = 48834-7) ketone, urine (test code = small, 15 negative H ketone, urine) Specific gravity of Urine 1.025 1.003-1.030 by Automated test strip (test code = 16392-7) Hemoglobin [Presence] in negative negative Urine by Test strip (test code = 5794-3) pH of Urine (test code = 6.500 5-9 2756-5) protein urine (UA) (test =1+ (30 negative H code = protein urine (UA)) Urobilinogen [Presence] in 1.0 E.U./dL 0.2-1.0 Urine (test code = 16566-3) Nitrite [Presence] in Urine negative negative by Test strip (test code = 5802-4) urine leukocyte esterase =1 negative H (test code = urine leukocyte esterase) Erythrocytes [Presence] in none seen 0-5 Urine (test code = 74494-0) WBC, urine (test code = =5-9 0-5 H WBC, urine) bacteria, urine (test code moderate (2 none detect H = bacteria, urine) Casts [#/area] in Urine =2-5 none detect sediment by Automated count (test code = 17518-0) urine culture added? (test no. contaminated. code = urine culture added?) squamous epithelial cell more than 25 0-5 urine (test code = squamous epithelial cell urine) mucus, urine (test code = =1 none detect mucus, urine) [facility] Hospital[facility]ysis complete panel - [id number] 04:20:00 Test Item Value Reference Range Interpretation Comments Color of Urine by Auto yellow (test code = 61646-4) Appearance of Urine (test SL cloudy clear A code = 5767-9) Glucose [Mass/volume] in negative negative Urine (test code = 2350-7) bilirubin, urine (test code small negative H = bilirubin, urine) Bilirubin [Presence] in negative negative Urine by Confirmatory method (test code = 54060-4) ketone, urine (test code = small, 15 negative H ketone, urine) Specific gravity of Urine 1.025 1.003-1.030 by Automated test strip (test code = 35052-7) Hemoglobin [Presence] in negative negative Urine by Test strip (test code = 5794-3) pH of Urine (test code = 6.500 5-9 2756-5) protein urine (UA) (test =1+ (30 negative H code = protein urine (UA)) Urobilinogen [Presence] in 1.0 E.U./dL 0.2-1.0 Urine (test code = 22701-0) Nitrite [Presence] in Urine negative negative by Test strip (test code = 5802-4) urine leukocyte esterase =1 negative H (test code = urine leukocyte esterase) Erythrocytes [Presence] in none seen 0-5 Urine (test code = 48394-3) WBC, urine (test code = =5-9 0-5 H WBC, urine) bacteria, urine (test code moderate (2 none detect H = bacteria, urine) Casts [#/area] in Urine =2-5 none detect sediment by Automated count (test code = 41386-1) urine culture added? (test no. contaminated. code = urine culture added?) squamous epithelial cell more than 25 0-5 urine (test code = squamous epithelial cell urine) mucus, urine (test code = =1 none detect mucus, urine) [facility] HospitalUrinalysis complete panel - [id number] 04:20:00 Test Item Value Reference Range Interpretation Comments Color of Urine by Auto yellow (test code = 75173-0) Appearance of Urine (test SL cloudy clear A code = 5767-9) Glucose [Mass/volume] in negative negative Urine (test code = 2350-7) bilirubin, urine (test code small negative H = bilirubin, urine) Bilirubin [Presence] in negative negative Urine by Confirmatory method (test code = 45565-9) ketone, urine (test code = small, 15 negative H ketone, urine) Specific gravity of Urine 1.025 1.003-1.030 by Automated test strip (test code = 72202-9) Hemoglobin [Presence] in negative negative Urine by Test strip (test code = 5794-3) pH of Urine (test code = 6.500 5-9 2756-5) protein urine (UA) (test =1+ (30 negative H code = protein urine (UA)) Urobilinogen [Presence] in 1.0 E.U./dL 0.2-1.0 Urine (test code = 43294-6) Nitrite [Presence] in Urine negative negative by Test strip (test code = 5802-4) urine leukocyte esterase =1 negative H (test code = urine leukocyte esterase) Erythrocytes [Presence] in none seen 0-5 Urine (test code = 36942-1) WBC, urine (test code = =5-9 0-5 H WBC, urine) bacteria, urine (test code moderate (2 none detect H = bacteria, urine) Casts [#/area] in Urine =2-5 none detect sediment by Automated count (test code = 56156-6) urine culture added? (test no. contaminated. code = urine culture added?) squamous epithelial cell more than 25 0-5 urine (test code = squamous epithelial cell urine) mucus, urine (test code = =1 none detect mucus, urine) [facility] - [id number] 04:20:00 Test Item Value Reference Range Interpretation Comments Color of Urine by Auto yellow (test code = 90354-8) Appearance of Urine (test SL cloudy clear A code = 5767-9) Glucose [Mass/volume] in negative negative Urine (test code = 2350-7) bilirubin, urine (test code small negative H = bilirubin, urine) Bilirubin [Presence] in negative negative Urine by Confirmatory method (test code = 63897-2) ketone, urine (test code = small, 15 negative H ketone, urine) Specific gravity of Urine 1.025 1.003-1.030 by Automated test strip (test code = 63509-4) Hemoglobin [Presence] in negative negative Urine by Test strip (test code = 5794-3) pH of Urine (test code = 6.500 5-9 2756-5) protein urine (UA) (test =1+ (30 negative H code = protein urine (UA)) Urobilinogen [Presence] in 1.0 E.U./dL 0.2-1.0 Urine (test code = 65436-5) Nitrite [Presence] in Urine negative negative by Test strip (test code = 5802-4) urine leukocyte esterase =1 negative H (test code = urine leukocyte esterase) Erythrocytes [Presence] in none seen 0-5 Urine (test code = 61456-0) WBC, urine (test code = =5-9 0-5 H WBC, urine) bacteria, urine (test code moderate (2 none detect H = bacteria, urine) Casts [#/area] in Urine =2-5 none detect sediment by Automated count (test code = 65122-3) urine culture added? (test no. contaminated. code = urine culture added?) squamous epithelial cell more than 25 0-5 urine (test code = squamous epithelial cell urine) mucus, urine (test code = =1 none detect mucus, urine) [facility]Ch[facility]omat[facility]+Neisseria gonorrhoeae DNA [Presence] in Unspecified specimen by Probe and target amplification method 2018-11-12 00:00:00 Test Item Value Reference Range Interpretation Comments chlamydia trachomatis by real-time negative PCR (reflex to azithromycin resistance by pyrosequencing) (test code = chlamydia trachomatis by real-time PCR (reflex to azithromycin resistance by pyrosequencing)) neisseria gonorrhoeae by real-time negative PCR (reflex to antibiotic resistance by molecular analysis) (test code = neisseria gonorrhoeae by real-time PCR (reflex to antibiotic resistance by molecular analysis)) [facility]Pres[facility] in Unspecified specimen by Organism specific [id number] 00:00:00 Test Item Value Reference Range Interpretation Comments group B streptococcus (gbs) by positive A real-time PCR (test code = group B streptococcus (gbs) by real-time PCR) group B streptococcus (gbs) antibiotic resistance by PCR (test code = group B streptococcus (gbs) antibiotic resistance by PCR) [facility]+Neisseria gonorrhoeae DNA [Presence] in Unspecified specimen by Probe and target amplification method 2018-11-12 00:00:00 Test Item Value Reference Range Interpretation Comments chlamydia trachomatis by real-time negative PCR (reflex to azithromycin resistance by pyrosequencing) (test code = chlamydia trachomatis by real-time PCR (reflex to azithromycin resistance by pyrosequencing)) neisseria gonorrhoeae by real-time negative PCR (reflex to antibiotic resistance by molecular analysis) (test code = neisseria gonorrhoeae by real-time PCR (reflex to antibiotic resistance by molecular analysis)) [facility] GroupSt[facility] agalactiae [Presence] in Unspecified specimen by Organism specific [id number] 00:00:00 Test Item Value Reference Range Interpretation Comments group B streptococcus (gbs) by positive A real-time PCR (test code = group B streptococcus (gbs) by real-time PCR) group B streptococcus (gbs) antibiotic resistance by PCR (test code = group B streptococcus (gbs) antibiotic resistance by PCR) [facility] GroupCh[facility]achomat[facility]+Neisseria gonorrhoeae DNA [Presence] in Unspecified specimen by Probe and target amplification method 2018-11-12 00:00:00 Test Item Value Reference Range Interpretation Comments chlamydia trachomatis by real-time negative PCR (reflex to azithromycin resistance by pyrosequencing) (test code = chlamydia trachomatis by real-time PCR (reflex to azithromycin resistance by pyrosequencing)) neisseria gonorrhoeae by real-time negative PCR (reflex to antibiotic resistance by molecular analysis) (test code = neisseria gonorrhoeae by real-time PCR (reflex to antibiotic resistance by molecular analysis)) [facility] in Unspecified specimen by Organism specific [id number] 00:00:00 Test Item Value Reference Range Interpretation Comments group B streptococcus (gbs) by positive A real-time PCR (test code = group B streptococcus (gbs) by real-time PCR) group B streptococcus (gbs) antibiotic resistance by PCR (test code = group B streptococcus (gbs) antibiotic resistance by PCR) [facility]Neisseria gonorrhoeae DNA [Presence] in Unspecified specimen by Probe and target amplification method 2018-11-12 00:00:00 Test Item Value Reference Range Interpretation Comments chlamydia trachomatis by real-time negative PCR (reflex to azithromycin resistance by pyrosequencing) (test code = chlamydia trachomatis by real-time PCR (reflex to azithromycin resistance by pyrosequencing)) neisseria gonorrhoeae by real-time negative PCR (reflex to antibiotic resistance by molecular analysis) (test code = neisseria gonorrhoeae by real-time PCR (reflex to antibiotic resistance by molecular analysis)) [facility] [Presence] in Unspecified specimen by Organism specific [id number] 00:00:00 Test Item Value Reference Range Interpretation Comments group B streptococcus (gbs) by positive A real-time PCR (test code = group B streptococcus (gbs) by real-time PCR) group B streptococcus (gbs) antibiotic resistance by PCR (test code = group B streptococcus (gbs) antibiotic resistance by PCR) [facility]Neisseria gonorrhoeae DNA [Presence] in Unspecified specimen by Probe and target amplification method 2018-11-12 00:00:00 Test Item Value Reference Range Interpretation Comments chlamydia trachomatis by real-time negative PCR (reflex to azithromycin resistance by pyrosequencing) (test code = chlamydia trachomatis by real-time PCR (reflex to azithromycin resistance by pyrosequencing)) neisseria gonorrhoeae by real-time negative PCR (reflex to antibiotic resistance by molecular analysis) (test code = neisseria gonorrhoeae by real-time PCR (reflex to antibiotic resistance by molecular analysis)) [facility] specimen by Organism specific [id number] 00:00:00 Test Item Value Reference Range Interpretation Comments group B streptococcus (gbs) by positive A real-time PCR (test code = group B streptococcus (gbs) by real-time PCR) group B streptococcus (gbs) antibiotic resistance by PCR (test code = group B streptococcus (gbs) antibiotic resistance by PCR) [facility]Neisseria gonorrhoeae DNA [Presence] in Unspecified specimen by Probe and target amplification method 2018-11-12 00:00:00 Test Item Value Reference Range Interpretation Comments chlamydia trachomatis by real-time negative PCR (reflex to azithromycin resistance by pyrosequencing) (test code = chlamydia trachomatis by real-time PCR (reflex to azithromycin resistance by pyrosequencing)) neisseria gonorrhoeae by real-time negative PCR (reflex to antibiotic resistance by molecular analysis) (test code = neisseria gonorrhoeae by real-time PCR (reflex to antibiotic resistance by molecular analysis)) [facility] in Unspecified specimen by Organism specific [id number] 00:00:00 Test Item Value Reference Range Interpretation Comments group B streptococcus (gbs) by positive A real-time PCR (test code = group B streptococcus (gbs) by real-time PCR) group B streptococcus (gbs) antibiotic resistance by PCR (test code = group B streptococcus (gbs) antibiotic resistance by PCR) [facility] (dipstick) panel - [id number] 13:56:16 Test Item Value Reference Range Interpretation Comments Leukocytes (test code = Leukocytes) Small Nitrite (test code = Nitrite) negative Urobilinogen (test code = .2 Urobilinogen) Protein (test code = Protein) Negative pH (test code = pH) 7.0 Blood (test code = Blood) Negative Specific [place] (test code = 1.020 Specific [place]) Ketone (test code = Ketone) Negative Bilirubin (test code = Bilirubin) Negative Glucose (test code = Glucose) Negative Appearance (test code = Appearance) Clear Color (test code = Color) Yellow [facility] (dipstick) panel - [id number] 13:56:16 Test Item Value Reference Range Interpretation Comments Leukocytes (test code = Leukocytes) Small Nitrite (test code = Nitrite) negative Urobilinogen (test code = .2 Urobilinogen) Protein (test code = Protein) Negative pH (test code = pH) 7.0 Blood (test code = Blood) Negative Specific [place] (test code = 1.020 Specific [place]) Ketone (test code = Ketone) Negative Bilirubin (test code = Bilirubin) Negative Glucose (test code = Glucose) Negative Appearance (test code = Appearance) Clear Color (test code = Color) Yellow [facility] (dipstick) panel - [id number] 13:56:16 Test Item Value Reference Range Interpretation Comments Leukocytes (test code = Leukocytes) Small Nitrite (test code = Nitrite) negative Urobilinogen (test code = .2 Urobilinogen) Protein (test code = Protein) Negative pH (test code = pH) 7.0 Blood (test code = Blood) Negative Specific [place] (test code = 1.020 Specific [place]) Ketone (test code = Ketone) Negative Bilirubin (test code = Bilirubin) Negative Glucose (test code = Glucose) Negative Appearance (test code = Appearance) Clear Color (test code = Color) Yellow [facility] (dipstick) panel - [id number] 13:56:16 Test Item Value Reference Range Interpretation Comments Leukocytes (test code = Leukocytes) Small Nitrite (test code = Nitrite) negative Urobilinogen (test code = .2 Urobilinogen) Protein (test code = Protein) Negative pH (test code = pH) 7.0 Blood (test code = Blood) Negative Specific [place] (test code = 1.020 Specific [place]) Ketone (test code = Ketone) Negative Bilirubin (test code = Bilirubin) Negative Glucose (test code = Glucose) Negative Appearance (test code = Appearance) Clear Color (test code = Color) Yellow [facility] macro (dipstick) panel - [id number] 13:56:16 Test Item Value Reference Range Interpretation Comments Leukocytes (test code = Leukocytes) Small Nitrite (test code = Nitrite) negative Urobilinogen (test code = .2 Urobilinogen) Protein (test code = Protein) Negative pH (test code = pH) 7.0 Blood (test code = Blood) Negative Specific [place] (test code = 1.020 Specific [place]) Ketone (test code = Ketone) Negative Bilirubin (test code = Bilirubin) Negative Glucose (test code = Glucose) Negative Appearance (test code = Appearance) Clear Color (test code = Color) Yellow [facility] macro (dipstick) panel - [id number] 13:56:16 Test Item Value Reference Range Interpretation Comments Leukocytes (test code = Leukocytes) Small Nitrite (test code = Nitrite) negative Urobilinogen (test code = .2 Urobilinogen) Protein (test code = Protein) Negative pH (test code = pH) 7.0 Blood (test code = Blood) Negative Specific [place] (test code = 1.020 Specific [place]) Ketone (test code = Ketone) Negative Bilirubin (test code = Bilirubin) Negative Glucose (test code = Glucose) Negative Appearance (test code = Appearance) Clear Color (test code = Color) [facility] W Auto Differential panel - [id number] 08:07:00 Test Item Value Reference Range Interpretation Comments white blood count (test code = 8.0 K/uL 4.0-11.5 white blood count) red blood count (test code = red 3.83 M/uL 3.80-5.20 blood count) hemoglobin (test code = 9.7 g/dL 10.5-15.7 L hemoglobin) hematocrit (test code = 32.1 % 34.0-50.0 L hematocrit) Erythrocyte mean corpuscular 83.8 fL 86-100 L volume [Entitic volume] (test code = 87522-3) mean corpuscular hemoglobin (test 25.3 pg 26.2-33.4 L code = mean corpuscular hemoglobin) mean corpuscular HGB conc (test 30.2 g/dL 30-34 code = mean corpuscular HGB conc) red cell distribution width (test 13.0 % 12.0-15.5 code = red cell distribution width) platelet count (test code = 177 K/uL 165-450 platelet count) mean platelet volume (test code = 12.0 fL 9.4-12.6 mean platelet volume) Neutrophils.segmented/100 74.8 % 44.4-80.1 leukocytes in Blood (test code = 02211-6) Ig% (test code = Ig%) 0.4 % 0.0-0.4 lymphocyte% (test code = 16.0 % 10.0-50.0 lymphocyte%) mono % (test code = mono %) 6.8 % 3.6-12.0 eos % (test code = eos %) 1.5 % 0.0-5.4 Basophils/100 leukocytes in 0.5 % 0.1-1.2 Unspecified specimen (test code = 65763-1) absolute neutrophil count (test 5.99 K/uL 1.56-6.13 code = absolute neutrophil count) Ig# (test code = Ig#) 0.0 K/uL 0.0-0.03 Lymphocytes [#/volume] in 1.3 K/uL 1.18-3.74 Unspecified specimen by Automated count (test code = 99424-1) mono # (test code = mono #) 0.54 K/uL 0.24-0.86 eos # (test code = eos #) 0.12 K/uL 0.04-0.36 basophil # (test code = basophil 0.04 K/uL 0.01-0.08 #) NRBC% (test code = NRBC%) 0 /100 WBC 0-0.2 NRBC# (test code = NRBC#) 0 K/uL [facility] W Auto Differential panel - [id number] 08:07:00 Test Item Value Reference Range Interpretation Comments white blood count (test code = 8.0 K/uL 4.0-11.5 white blood count) red blood count (test code = red 3.83 M/uL 3.80-5.20 blood count) hemoglobin (test code = 9.7 g/dL 10.5-15.7 L hemoglobin) hematocrit (test code = 32.1 % 34.0-50.0 L hematocrit) Erythrocyte mean corpuscular 83.8 fL 86-100 L volume [Entitic volume] (test code = 28404-1) mean corpuscular hemoglobin (test 25.3 pg 26.2-33.4 L code = mean corpuscular hemoglobin) mean corpuscular HGB conc (test 30.2 g/dL 30-34 code = mean corpuscular HGB conc) red cell distribution width (test 13.0 % 12.0-15.5 code = red cell distribution width) platelet count (test code = 177 K/uL 165-450 platelet count) mean platelet volume (test code = 12.0 fL 9.4-12.6 mean platelet volume) Neutrophils.segmented/100 74.8 % 44.4-80.1 leukocytes in Blood (test code = 53007-9) Ig% (test code = Ig%) 0.4 % 0.0-0.4 lymphocyte% (test code = 16.0 % 10.0-50.0 lymphocyte%) mono % (test code = mono %) 6.8 % 3.6-12.0 eos % (test code = eos %) 1.5 % 0.0-5.4 Basophils/100 leukocytes in 0.5 % 0.1-1.2 Unspecified specimen (test code = 39110-4) absolute neutrophil count (test 5.99 K/uL 1.56-6.13 code = absolute neutrophil count) Ig# (test code = Ig#) 0.0 K/uL 0.0-0.03 Lymphocytes [#/volume] in 1.3 K/uL 1.18-3.74 Unspecified specimen by Automated count (test code = 37847-0) mono # (test code = mono #) 0.54 K/uL 0.24-0.86 eos # (test code = eos #) 0.12 K/uL 0.04-0.36 basophil # (test code = basophil 0.04 K/uL 0.01-0.08 #) NRBC% (test code = NRBC%) 0 /100 WBC 0-0.2 NRBC# (test code = NRBC#) 0 K/uL [facility] W Auto Differential panel - [id number] 08:07:00 Test Item Value Reference Range Interpretation Comments white blood count (test code = 8.0 K/uL 4.0-11.5 white blood count) red blood count (test code = red 3.83 M/uL 3.80-5.20 blood count) hemoglobin (test code = 9.7 g/dL 10.5-15.7 L hemoglobin) hematocrit (test code = 32.1 % 34.0-50.0 L hematocrit) Erythrocyte mean corpuscular 83.8 fL 86-100 L volume [Entitic volume] (test code = 79292-8) mean corpuscular hemoglobin (test 25.3 pg 26.2-33.4 L code = mean corpuscular hemoglobin) mean corpuscular HGB conc (test 30.2 g/dL 30-34 code = mean corpuscular HGB conc) red cell distribution width (test 13.0 % 12.0-15.5 code = red cell distribution width) platelet count (test code = 177 K/uL 165-450 platelet count) mean platelet volume (test code = 12.0 fL 9.4-12.6 mean platelet volume) Neutrophils.segmented/100 74.8 % 44.4-80.1 leukocytes in Blood (test code = 12984-5) Ig% (test code = Ig%) 0.4 % 0.0-0.4 lymphocyte% (test code = 16.0 % 10.0-50.0 lymphocyte%) mono % (test code = mono %) 6.8 % 3.6-12.0 eos % (test code = eos %) 1.5 % 0.0-5.4 Basophils/100 leukocytes in 0.5 % 0.1-1.2 Unspecified specimen (test code = 47435-4) absolute neutrophil count (test 5.99 K/uL 1.56-6.13 code = absolute neutrophil count) Ig# (test code = Ig#) 0.0 K/uL 0.0-0.03 Lymphocytes [#/volume] in 1.3 K/uL 1.18-3.74 Unspecified specimen by Automated count (test code = 51639-5) mono # (test code = mono #) 0.54 K/uL 0.24-0.86 eos # (test code = eos #) 0.12 K/uL 0.04-0.36 basophil # (test code = basophil 0.04 K/uL 0.01-0.08 #) NRBC% (test code = NRBC%) 0 /100 WBC 0-0.2 NRBC# (test code = NRBC#) 0 K/uL [facility] W Auto Differential panel - [id number] 08:07:00 Test Item Value Reference Range Interpretation Comments white blood count (test code = 8.0 K/uL 4.0-11.5 white blood count) red blood count (test code = red 3.83 M/uL 3.80-5.20 blood count) hemoglobin (test code = 9.7 g/dL 10.5-15.7 L hemoglobin) hematocrit (test code = 32.1 % 34.0-50.0 L hematocrit) Erythrocyte mean corpuscular 83.8 fL 86-100 L volume [Entitic volume] (test code = 60899-8) mean corpuscular hemoglobin (test 25.3 pg 26.2-33.4 L code = mean corpuscular hemoglobin) mean corpuscular HGB conc (test 30.2 g/dL 30-34 code = mean corpuscular HGB conc) red cell distribution width (test 13.0 % 12.0-15.5 code = red cell distribution width) platelet count (test code = 177 K/uL 165-450 platelet count) mean platelet volume (test code = 12.0 fL 9.4-12.6 mean platelet volume) Neutrophils.segmented/100 74.8 % 44.4-80.1 leukocytes in Blood (test code = 13923-1) Ig% (test code = Ig%) 0.4 % 0.0-0.4 lymphocyte% (test code = 16.0 % 10.0-50.0 lymphocyte%) mono % (test code = mono %) 6.8 % 3.6-12.0 eos % (test code = eos %) 1.5 % 0.0-5.4 Basophils/100 leukocytes in 0.5 % 0.1-1.2 Unspecified specimen (test code = 64506-2) absolute neutrophil count (test 5.99 K/uL 1.56-6.13 code = absolute neutrophil count) Ig# (test code = Ig#) 0.0 K/uL 0.0-0.03 Lymphocytes [#/volume] in 1.3 K/uL 1.18-3.74 Unspecified specimen by Automated count (test code = 35283-1) mono # (test code = mono #) 0.54 K/uL 0.24-0.86 eos # (test code = eos #) 0.12 K/uL 0.04-0.36 basophil # (test code = basophil 0.04 K/uL 0.01-0.08 #) NRBC% (test code = NRBC%) 0 /100 WBC 0-0.2 NRBC# (test code = NRBC#) 0 K/uL [facility] W Auto Differential panel - [id number] 08:07:00 Test Item Value Reference Range Interpretation Comments white blood count (test code = 8.0 K/uL 4.0-11.5 white blood count) red blood count (test code = red 3.83 M/uL 3.80-5.20 blood count) hemoglobin (test code = 9.7 g/dL 10.5-15.7 L hemoglobin) hematocrit (test code = 32.1 % 34.0-50.0 L hematocrit) Erythrocyte mean corpuscular 83.8 fL 86-100 L volume [Entitic volume] (test code = 62736-8) mean corpuscular hemoglobin (test 25.3 pg 26.2-33.4 L code = mean corpuscular hemoglobin) mean corpuscular HGB conc (test 30.2 g/dL 30-34 code = mean corpuscular HGB conc) red cell distribution width (test 13.0 % 12.0-15.5 code = red cell distribution width) platelet count (test code = 177 K/uL 165-450 platelet count) mean platelet volume (test code = 12.0 fL 9.4-12.6 mean platelet volume) Neutrophils.segmented/100 74.8 % 44.4-80.1 leukocytes in Blood (test code = 88910-8) Ig% (test code = Ig%) 0.4 % 0.0-0.4 lymphocyte% (test code = 16.0 % 10.0-50.0 lymphocyte%) mono % (test code = mono %) 6.8 % 3.6-12.0 eos % (test code = eos %) 1.5 % 0.0-5.4 Basophils/100 leukocytes in 0.5 % 0.1-1.2 Unspecified specimen (test code = 38105-7) absolute neutrophil count (test 5.99 K/uL 1.56-6.13 code = absolute neutrophil count) Ig# (test code = Ig#) 0.0 K/uL 0.0-0.03 Lymphocytes [#/volume] in 1.3 K/uL 1.18-3.74 Unspecified specimen by Automated count (test code = 33046-8) mono # (test code = mono #) 0.54 K/uL 0.24-0.86 eos # (test code = eos #) 0.12 K/uL 0.04-0.36 basophil # (test code = basophil 0.04 K/uL 0.01-0.08 #) NRBC% (test code = NRBC%) 0 /100 WBC 0-0.2 NRBC# (test code = NRBC#) 0 K/uL [facility] - [id number] 07:20:00 Test Item Value Reference Range Interpretation Comments Color of Urine by Auto (test yellow code = 85182-0) Appearance of Urine (test code clear clear = 5767-9) Glucose [Presence] in Urine by negative negative Automated test strip (test code = 28368-3) Bilirubin.total [Mass/volume] negative negative in Urine (test code = 1978-6) Ketones [Mass/volume] in Urine negative negative by Automated test strip (test code = 47149-9) Specific gravity of Urine by 1.023 1.003-1.030 Automated test strip (test code = 64228-5) blood urine (test code = blood =3 negative H urine) pH of Urine (test code = 6.500 5-9 2756-5) protein urine (UA) (test code = trace negative protein urine (UA)) Urobilinogen [Presence] in normal 0.2-1.0 Urine (test code = 94877-8) Nitrite [Presence] in Urine by negative negative Test strip (test code = 5802-4) Leukocyte esterase [Presence] =2 negative H in Urine by Automated test strip (test code = 18044-0) Erythrocytes [#/volume] in >50 0-5 H Urine by Automated count (test code = 798-9) Leukocytes [#/area] in Urine =6-10 0-5 H sediment by Automated count (test code = 64227-1) Epithelial cells [Presence] in =1-5 0-5 Urine sediment by Light microscopy (test code = 41086-5) Bacteria identified in Urine by none detected none detect Culture (test code = 630-4) Casts [#/area] in Urine =2-5 none detect sediment by Automated count (test code = 12373-3) urine culture added? (test code yes = urine culture added?) [facility] by [id number] 07:20:00 Test Item Value Reference Range Interpretation Comments Bacteria identified in no growth at 48 hrs. Urine by Culture (test code = 630-4) [facility] - [id number] 07:20:00 Test Item Value Reference Range Interpretation Comments Color of Urine by Auto (test yellow code = 65645-7) Appearance of Urine (test code clear clear = 5767-9) Glucose [Presence] in Urine by negative negative Automated test strip (test code = 33153-3) Bilirubin.total [Mass/volume] negative negative in Urine (test code = 1978-6) Ketones [Mass/volume] in Urine negative negative by Automated test strip (test code = 90700-4) Specific gravity of Urine by 1.023 1.003-1.030 Automated test strip (test code = 71102-4) blood urine (test code = blood =3 negative H urine) pH of Urine (test code = 6.500 5-9 2756-5) protein urine (UA) (test code = trace negative protein urine (UA)) Urobilinogen [Presence] in normal 0.2-1.0 Urine (test code = 22390-2) Nitrite [Presence] in Urine by negative negative Test strip (test code = 5802-4) Leukocyte esterase [Presence] =2 negative H in Urine by Automated test strip (test code = 38178-6) Erythrocytes [#/volume] in >50 0-5 H Urine by Automated count (test code = 798-9) Leukocytes [#/area] in Urine =6-10 0-5 H sediment by Automated count (test code = 77909-9) Epithelial cells [Presence] in =1-5 0-5 Urine sediment by Light microscopy (test code = 06435-3) Bacteria identified in Urine by none detected none detect Culture (test code = 630-4) Casts [#/area] in Urine =2-5 none detect sediment by Automated count (test code = 24380-5) urine culture added? (test code yes = urine culture added?) [facility] by [id number] 07:20:00 Test Item Value Reference Range Interpretation Comments Bacteria identified in no growth at 48 hrs. Urine by Culture (test code = 630-4) [facility] - [id number] 07:20:00 Test Item Value Reference Range Interpretation Comments Color of Urine by Auto (test yellow code = 14171-2) Appearance of Urine (test code clear clear = 5767-9) Glucose [Presence] in Urine by negative negative Automated test strip (test code = 38071-8) Bilirubin.total [Mass/volume] negative negative in Urine (test code = 1978-6) Ketones [Mass/volume] in Urine negative negative by Automated test strip (test code = 10150-1) Specific gravity of Urine by 1.023 1.003-1.030 Automated test strip (test code = 94619-0) blood urine (test code = blood =3 negative H urine) pH of Urine (test code = 6.500 5-9 2756-5) protein urine (UA) (test code = trace negative protein urine (UA)) Urobilinogen [Presence] in normal 0.2-1.0 Urine (test code = 64996-7) Nitrite [Presence] in Urine by negative negative Test strip (test code = 5802-4) Leukocyte esterase [Presence] =2 negative H in Urine by Automated test strip (test code = 29840-4) Erythrocytes [#/volume] in >50 0-5 H Urine by Automated count (test code = 798-9) Leukocytes [#/area] in Urine =6-10 0-5 H sediment by Automated count (test code = 86923-0) Epithelial cells [Presence] in =1-5 0-5 Urine sediment by Light microscopy (test code = 28244-8) Bacteria identified in Urine by none detected none detect Culture (test code = 630-4) Casts [#/area] in Urine =2-5 none detect sediment by Automated count (test code = 66666-8) urine culture added? (test code yes = urine culture added?) [facility] by [id number] 07:20:00 Test Item Value Reference Range Interpretation Comments Bacteria identified in no growth at 48 hrs. Urine by Culture (test code = 630-4) [facility] - [id number] 07:20:00 Test Item Value Reference Range Interpretation Comments Color of Urine by Auto (test yellow code = 70397-8) Appearance of Urine (test code clear clear = 5767-9) Glucose [Presence] in Urine by negative negative Automated test strip (test code = 41060-4) Bilirubin.total [Mass/volume] negative negative in Urine (test code = 1978-6) Ketones [Mass/volume] in Urine negative negative by Automated test strip (test code = 77953-0) Specific gravity of Urine by 1.023 1.003-1.030 Automated test strip (test code = 38199-9) blood urine (test code = blood =3 negative H urine) pH of Urine (test code = 6.500 5-9 2756-5) protein urine (UA) (test code = trace negative protein urine (UA)) Urobilinogen [Presence] in normal 0.2-1.0 Urine (test code = 39084-9) Nitrite [Presence] in Urine by negative negative Test strip (test code = 5802-4) Leukocyte esterase [Presence] =2 negative H in Urine by Automated test strip (test code = 62953-8) Erythrocytes [#/volume] in >50 0-5 H Urine by Automated count (test code = 798-9) Leukocytes [#/area] in Urine =6-10 0-5 H sediment by Automated count (test code = 95966-6) Epithelial cells [Presence] in =1-5 0-5 Urine sediment by Light microscopy (test code = 19183-6) Bacteria identified in Urine by none detected none detect Culture (test code = 630-4) Casts [#/area] in Urine =2-5 none detect sediment by Automated count (test code = 56505-8) urine culture added? (test code yes = urine culture added?) [facility] Urine by [id number] 07:20:00 Test Item Value Reference Range Interpretation Comments Bacteria identified in no growth at 48 hrs. Urine by Culture (test code = 630-4) [facility] - [id number] 07:20:00 Test Item Value Reference Range Interpretation Comments Color of Urine by Auto (test yellow code = 13100-0) Appearance of Urine (test code clear clear = 5767-9) Glucose [Presence] in Urine by negative negative Automated test strip (test code = 98594-8) Bilirubin.total [Mass/volume] negative negative in Urine (test code = 1978-6) Ketones [Mass/volume] in Urine negative negative by Automated test strip (test code = 57455-8) Specific gravity of Urine by 1.023 1.003-1.030 Automated test strip (test code = 40899-0) blood urine (test code = blood =3 negative H urine) pH of Urine (test code = 6.500 5-9 2756-5) protein urine (UA) (test code = trace negative protein urine (UA)) Urobilinogen [Presence] in normal 0.2-1.0 Urine (test code = 47860-0) Nitrite [Presence] in Urine by negative negative Test strip (test code = 5802-4) Leukocyte esterase [Presence] =2 negative H in Urine by Automated test strip (test code = 05724-2) Erythrocytes [#/volume] in >50 0-5 H Urine by Automated count (test code = 798-9) Leukocytes [#/area] in Urine =6-10 0-5 H sediment by Automated count (test code = 13833-1) Epithelial cells [Presence] in =1-5 0-5 Urine sediment by Light microscopy (test code = 26702-3) Bacteria identified in Urine by none detected none detect Culture (test code = 630-4) Casts [#/area] in Urine =2-5 none detect sediment by Automated count (test code = 96126-7) urine culture added? (test code yes = urine culture added?) [facility] by [id number] 07:20:00 Test Item Value Reference Range Interpretation Comments Bacteria identified in no growth at 48 hrs. Urine by Culture (test code = 630-4) [facility] Hospital[facility] macro (dipstick) panel - [id number] 14:30:00 Test Item Value Reference Range Interpretation Comments Leukocytes (test code = Small Leukocytes) Nitrite (test code = negative Nitrite) Urobilinogen (test code = .2 Urobilinogen) Protein (test code = Trace Protein) pH (test code = pH) 6.0 Blood (test code = Blood) Non-Hemolyzed: Trace Specific [place] (test 1.030 code = Specific [place]) Ketone (test code = Trace Ketone) Bilirubin (test code = Negative Bilirubin) Glucose (test code = Negative Glucose) Appearance (test code = Clear Appearance) Color (test code = Color) Dark Yellow [facility] HospitalUr[facility] macro (dipstick) panel - [id number] 14:30:00 Test Item Value Reference Range Interpretation Comments Leukocytes (test code = Small Leukocytes) Nitrite (test code = negative Nitrite) Urobilinogen (test code = .2 Urobilinogen) Protein (test code = Trace Protein) pH (test code = pH) 6.0 Blood (test code = Blood) Non-Hemolyzed: Trace Specific [place] (test 1.030 code = Specific [place]) Ketone (test code = Trace Ketone) Bilirubin (test code = Negative Bilirubin) Glucose (test code = Negative Glucose) Appearance (test code = Clear Appearance) Color (test code = Color) Dark Yellow [facility] macro (dipstick) panel - [id number] 14:30:00 Test Item Value Reference Range Interpretation Comments Leukocytes (test code = Small Leukocytes) Nitrite (test code = negative Nitrite) Urobilinogen (test code = .2 Urobilinogen) Protein (test code = Trace Protein) pH (test code = pH) 6.0 Blood (test code = Blood) Non-Hemolyzed: Trace Specific [place] (test 1.030 code = Specific [place]) Ketone (test code = Trace Ketone) Bilirubin (test code = Negative Bilirubin) Glucose (test code = Negative Glucose) Appearance (test code = Clear Appearance) Color (test code = Color) Dark Yellow [facility] Hospital[facility] macro (dipstick) panel - [id number] 14:30:00 Test Item Value Reference Range Interpretation Comments Leukocytes (test code = Small Leukocytes) Nitrite (test code = negative Nitrite) Urobilinogen (test code = .2 Urobilinogen) Protein (test code = Trace Protein) pH (test code = pH) 6.0 Blood (test code = Blood) Non-Hemolyzed: Trace Specific [place] (test 1.030 code = Specific [place]) Ketone (test code = Trace Ketone) Bilirubin (test code = Negative Bilirubin) Glucose (test code = Negative Glucose) Appearance (test code = Clear Appearance) Color (test code = Color) Dark Yellow [facility] HospitalUr[facility] complete panel - [id number] 06:40:00 Test Item Value Reference Range Interpretation Comments Color of Urine by Auto light orange (test code = 00027-3) Appearance of Urine (test SL cloudy clear A code = 5767-9) Glucose [Presence] in Urine negative negative by Automated test strip (test code = 90884-6) Bilirubin.total negative negative [Mass/volume] in Urine (test code = 1977-6) Ketones [Mass/volume] in negative negative Urine by Automated test strip (test code = 72365-1) Specific gravity of Urine 1.018 1.003-1.030 by Automated test strip (test code = 47266-1) blood urine (test code = =3 negative H blood urine) pH of Urine (test code = 8.000 5-9 2756-5) protein urine (UA) (test =1+ (70 negative H code = protein urine (UA)) Urobilinogen [Presence] in normal 0.2-1.0 Urine (test code = 99177-6) Nitrite [Presence] in Urine negative negative by Test strip (test code = 5802-4) Leukocyte esterase =3 negative H [Presence] in Urine by Automated test strip (test code = 92402-3) Erythrocytes [#/volume] in =6-10 0-5 H Urine by Automated count (test code = 798-9) Leukocytes [#/area] in >50 0-5 H Urine sediment by Automated count (test code = 83737-9) Epithelial cells [Presence] more than 25 0-5 H in Urine sediment by Light microscopy (test code = 40881-4) Bacteria identified in [facility] (4 none detect H Urine by Culture (test code = 630-4) Casts [#/area] in Urine =30-49 none detect H sediment by Automated count (test code = 16377-0) urine culture added? (test no. contaminated. code = urine culture added?) [facility] HospitalUr[facility] complete panel - [id number] 06:40:00 Test Item Value Reference Range Interpretation Comments Color of Urine by Auto light orange (test code = 18177-8) Appearance of Urine (test SL cloudy clear A code = 5767-9) Glucose [Presence] in Urine negative negative by Automated test strip (test code = 71806-6) Bilirubin.total negative negative [Mass/volume] in Urine (test code = 1978-6) Ketones [Mass/volume] in negative negative Urine by Automated test strip (test code = 74747-4) Specific gravity of Urine 1.018 1.003-1.030 by Automated test strip (test code = 05436-8) blood urine (test code = =3 negative H blood urine) pH of Urine (test code = 8.000 5-9 2756-5) protein urine (UA) (test =1+ (70 negative H code = protein urine (UA)) Urobilinogen [Presence] in normal 0.2-1.0 Urine (test code = 51516-5) Nitrite [Presence] in Urine negative negative by Test strip (test code = 5802-4) Leukocyte esterase =3 negative H [Presence] in Urine by Automated test strip (test code = 80870-7) Erythrocytes [#/volume] in =6-10 0-5 H Urine by Automated count (test code = 798-9) Leukocytes [#/area] in >50 0-5 H Urine sediment by Automated count (test code = 90840-8) Epithelial cells [Presence] more than 25 0-5 H in Urine sediment by Light microscopy (test code = 55591-9) Bacteria identified in [facility] (4 none detect H Urine by Culture (test code = 630-4) Casts [#/area] in Urine =30-49 none detect H sediment by Automated count (test code = 03376-6) urine culture added? (test no. contaminated. code = urine culture added?) [facility] HospitalUr[facility]ysis complete panel - [id number] 06:40:00 Test Item Value Reference Range Interpretation Comments Color of Urine by Auto light orange (test code = 05530-8) Appearance of Urine (test SL cloudy clear A code = 5767-9) Glucose [Presence] in Urine negative negative by Automated test strip (test code = 68074-9) Bilirubin.total negative negative [Mass/volume] in Urine (test code = 1978-6) Ketones [Mass/volume] in negative negative Urine by Automated test strip (test code = 14197-6) Specific gravity of Urine 1.018 1.003-1.030 by Automated test strip (test code = 01433-1) blood urine (test code = =3 negative H blood urine) pH of Urine (test code = 8.000 5-9 2756-5) protein urine (UA) (test =1+ (70 negative H code = protein urine (UA)) Urobilinogen [Presence] in normal 0.2-1.0 Urine (test code = 62871-9) Nitrite [Presence] in Urine negative negative by Test strip (test code = 5802-4) Leukocyte esterase =3 negative H [Presence] in Urine by Automated test strip (test code = 16388-0) Erythrocytes [#/volume] in =6-10 0-5 H Urine by Automated count (test code = 798-9) Leukocytes [#/area] in >50 0-5 H Urine sediment by Automated count (test code = 57516-6) Epithelial cells [Presence] more than 25 0-5 H in Urine sediment by Light microscopy (test code = 00853-9) Bacteria identified in [facility] (4 none detect H Urine by Culture (test code = 630-4) Casts [#/area] in Urine =30-49 none detect H sediment by Automated count (test code = 77793-7) urine culture added? (test no. contaminated. code = urine culture added?) [facility] HospitalUr[facility] macro (dipstick) panel - [id number] 15:14:00 Test Item Value Reference Range Interpretation Comments Leukocytes (test code = Leukocytes) Small Nitrite (test code = Nitrite) negative Urobilinogen (test code = .2 Urobilinogen) Protein (test code = Protein) Trace pH (test code = pH) 7.0 Blood (test code = Blood) Negative Specific [place] (test code = 1.025 Specific [place]) Ketone (test code = Ketone) Negative Bilirubin (test code = Bilirubin) Negative Glucose (test code = Glucose) Negative Appearance (test code = Appearance) Clear Color (test code = Color) Yellow [facility] HospitalUrinalysis macro (dipstick) panel - [id number] 15:14:00 Test Item Value Reference Range Interpretation Comments Leukocytes (test code = Leukocytes) Small Nitrite (test code = Nitrite) negative Urobilinogen (test code = .2 Urobilinogen) Protein (test code = Protein) Trace pH (test code = pH) 7.0 Blood (test code = Blood) Negative Specific [place] (test code = 1.025 Specific [place]) Ketone (test code = Ketone) Negative Bilirubin (test code = Bilirubin) Negative Glucose (test code = Glucose) Negative Appearance (test code = Appearance) Clear Color (test code = Color) [facility] - [id number] 07:21:00 Test Item Value Reference Range Interpretation Comments white blood count (test code = 8.3 K/uL 4.0-11.5 white blood count) red blood count (test code = red 4.23 M/uL 3.80-5.20 blood count) hemoglobin (test code = 11.1 g/dL 10.5-15.7 hemoglobin) hematocrit (test code = 36.1 % 34.0-50.0 hematocrit) Erythrocyte mean corpuscular 85.3 fL 86-100 L volume [Entitic volume] (test code = 06179-0) Erythrocyte mean corpuscular 26.2 pg 26.2-33.4 hemoglobin [Entitic mass] (test code = 05590-0) mean corpuscular HGB conc (test 30.7 g/dL 30-34 code = mean corpuscular HGB conc) red cell distribution width (test 13.0 % 12.0-15.5 code = red cell distribution width) platelet count (test code = 212 K/uL 165-450 platelet count) mean platelet volume (test code = 12.8 fL 9.4-12.6 H mean platelet volume) Neutrophils.segmented/100 72.7 % 44.4-80.1 leukocytes in Blood (test code = 48391-4) Ig% (test code = Ig%) 0.5 % 0.0-0.4 H lymphocyte% (test code = 14.8 % 10.0-50.0 lymphocyte%) Monocytes/100 leukocytes in Blood 5.2 % 3.6-12.0 by Automated count (test code = 5905-5) Eosinophils/100 leukocytes in 6.2 % 0.0-5.4 H Blood by Automated count (test code = 713-8) Basophils/100 leukocytes in 0.6 % 0.1-1.2 Unspecified specimen (test code = 81540-7) absolute neutrophil count (test 6.01 K/uL 1.56-6.13 code = absolute neutrophil count) Ig# (test code = Ig#) 0.0 K/uL 0.0-0.03 Lymphocytes [#/volume] in 1.2 K/uL 1.18-3.74 Unspecified specimen by Automated count (test code = 12258-9) mono # (test code = mono #) 0.43 K/uL 0.24-0.86 eos # (test code = eos #) 0.51 K/uL 0.04-0.36 H basophil # (test code = basophil 0.05 K/uL 0.01-0.08 #) NRBC% (test code = NRBC%) 0 /100 WBC 0-0.2 NRBC# (test code = NRBC#) 0 K/uL [facility] Hospitaldifferential panel, [id number] 07:21:00 NeutrophilsBandLymphocyteAtypical LymphMonocyteEosinophilBasophilMetamyelocyteNucleated Red Blood CellPlatelet EstimatePlatelet MorphologyHypochromasiaPoikilocytosisAnisocytosisMicrocytosisTarget CellsO valocytesBurr CellsAcanthocytesHypersegmented PolysMatagoRegional [facility] GroupBlood group antibody screen [Presence] in Serum or [id number] 07:21:00 Test Item Value Reference Range Interpretation Comments Blood group antibody screen negative [Presence] in Serum or Plasma (test code = 890-4) [facility] HospitalReagin Ab [Presence] in Serum by [id number] 07:21:00 Test Item Value Reference Range Interpretation Comments Reagin Ab [Presence] in Serum by nonreactive nonreactive RPR (test code = 07475-3) [facility] HospitalHIV 1+2 Ab [Presence] in [id number] 07:21:00HIV P24 AgHIV-1/2 AbWhitfield Medical Surgical HospitalCB W Auto Differential panel - Blood 2018-09-28 07:21:00 Test Item Value Reference Range Interpretation Comments white blood count (test code = 8.3 K/uL 4.0-11.5 white blood count) red blood count (test code = red 4.23 M/uL 3.80-5.20 blood count) hemoglobin (test code = 11.1 g/dL 10.5-15.7 hemoglobin) hematocrit (test code = 36.1 % 34.0-50.0 hematocrit) Erythrocyte mean corpuscular 85.3 fL 86-100 L volume [Entitic volume] (test code = 41693-1) Erythrocyte mean corpuscular 26.2 pg 26.2-33.4 hemoglobin [Entitic mass] (test code = 43837-3) mean corpuscular HGB conc (test 30.7 g/dL 30-34 code = mean corpuscular HGB conc) red cell distribution width (test 13.0 % 12.0-15.5 code = red cell distribution width) platelet count (test code = 212 K/uL 165-450 platelet count) mean platelet volume (test code = 12.8 fL 9.4-12.6 H mean platelet volume) Neutrophils.segmented/100 72.7 % 44.4-80.1 leukocytes in Blood (test code = 41109-3) Ig% (test code = Ig%) 0.5 % 0.0-0.4 H lymphocyte% (test code = 14.8 % 10.0-50.0 lymphocyte%) Monocytes/100 leukocytes in Blood 5.2 % 3.6-12.0 by Automated count (test code = 5905-5) Eosinophils/100 leukocytes in 6.2 % 0.0-5.4 H Blood by Automated count (test code = 713-8) Basophils/100 leukocytes in 0.6 % 0.1-1.2 Unspecified specimen (test code = 17533-9) absolute neutrophil count (test 6.01 K/uL 1.56-6.13 code = absolute neutrophil count) Ig# (test code = Ig#) 0.0 K/uL 0.0-0.03 Lymphocytes [#/volume] in 1.2 K/uL 1.18-3.74 Unspecified specimen by Automated count (test code = 61986-0) mono # (test code = mono #) 0.43 K/uL 0.24-0.86 eos # (test code = eos #) 0.51 K/uL 0.04-0.36 H basophil # (test code = basophil 0.05 K/uL 0.01-0.08 #) NRBC% (test code = NRBC%) 0 /100 WBC 0-0.2 NRBC# (test code = NRBC#) 0 K/uL [facility] Hospitaldifferent[facility] panel, [id number] 07:21:00 NeutrophilsBandLymphocyteAtypical LymphMonocyteEosinophilBasophilMetamyelocyteNucleated Red Blood CellPlatelet EstimatePlatelet MorphologyHypochromasiaPoikilocytosisAnisocytosisMicrocytosisTarget CellsO valocytesBurr CellsAcanthocytesHypersegmented PolysWhitfield Medical Surgical HospitalBlood group antibody screen [Presence] in Serum or [id number] 07:21:00 Test Item Value Reference Range Interpretation Comments Blood group antibody screen negative [Presence] in Serum or Plasma (test code = 890-4) [facility] HospitalReagin Ab [Presence] in Serum by [id number] 07:21:00 Test Item Value Reference Range Interpretation Comments Reagin Ab [Presence] in Serum by nonreactive nonreactive RPR (test code = 51945-4) [facility] HospitalHIV 1+2 Ab [Presence] in [id number] 07:21:00HIV P24 AgHIV-1/2 AbMatagorda Medical GroupCBC W Auto Differential panel - Blood 2018-09-28 07:21:00 Test Item Value Reference Range Interpretation Comments white blood count (test code = 8.3 K/uL 4.0-11.5 white blood count) red blood count (test code = red 4.23 M/uL 3.80-5.20 blood count) hemoglobin (test code = 11.1 g/dL 10.5-15.7 hemoglobin) hematocrit (test code = 36.1 % 34.0-50.0 hematocrit) Erythrocyte mean corpuscular 85.3 fL 86-100 L volume [Entitic volume] (test code = 37487-7) Erythrocyte mean corpuscular 26.2 pg 26.2-33.4 hemoglobin [Entitic mass] (test code = 06040-5) mean corpuscular HGB conc (test 30.7 g/dL 30-34 code = mean corpuscular HGB conc) red cell distribution width (test 13.0 % 12.0-15.5 code = red cell distribution width) platelet count (test code = 212 K/uL 165-450 platelet count) mean platelet volume (test code = 12.8 fL 9.4-12.6 H mean platelet volume) Neutrophils.segmented/100 72.7 % 44.4-80.1 leukocytes in Blood (test code = 56129-1) Ig% (test code = Ig%) 0.5 % 0.0-0.4 H lymphocyte% (test code = 14.8 % 10.0-50.0 lymphocyte%) Monocytes/100 leukocytes in Blood 5.2 % 3.6-12.0 by Automated count (test code = 5905-5) Eosinophils/100 leukocytes in 6.2 % 0.0-5.4 H Blood by Automated count (test code = 713-8) Basophils/100 leukocytes in 0.6 % 0.1-1.2 Unspecified specimen (test code = 16657-2) absolute neutrophil count (test 6.01 K/uL 1.56-6.13 code = absolute neutrophil count) Ig# (test code = Ig#) 0.0 K/uL 0.0-0.03 Lymphocytes [#/volume] in 1.2 K/uL 1.18-3.74 Unspecified specimen by Automated count (test code = 87629-8) mono # (test code = mono #) 0.43 K/uL 0.24-0.86 eos # (test code = eos #) 0.51 K/uL 0.04-0.36 H basophil # (test code = basophil 0.05 K/uL 0.01-0.08 #) NRBC% (test code = NRBC%) 0 /100 WBC 0-0.2 NRBC# (test code = NRBC#) 0 K/uL [facility]different[facility] panel, [id number] 07:21:00 NeutrophilsBandLymphocyteAtypical LymphMonocyteEosinophilBasophilMetamyelocyteNucleated Red Blood CellPlatelet EstimatePlatelet MorphologyHypochromasiaPoikilocytosisAnisocytosisMicrocytosisTarget CellsO valocytesBurr CellsAcanthocytesHypersegmented PolysTexas Children'S Hospital GroupBlood group antibody screen [Presence] in Serum or [id number] 07:21:00 Test Item Value Reference Range Interpretation Comments Blood group antibody screen negative [Presence] in Serum or Plasma (test code = 890-4) [facility] HospitalReagin Ab [Presence] in Serum by [id number] 07:21:00 Test Item Value Reference Range Interpretation Comments Reagin Ab [Presence] in Serum by nonreactive nonreactive RPR (test code = 73427-6) [facility] HospitalHIV 1+2 Ab [Presence] in [id number] 07:21:00HIV P24 AgHIV-1/2 AbMaMagee General HospitalUrinalysis complete panel - [id number] 06:17:00 Test Item Value Reference Range Interpretation Comments Color of Urine by Auto (test code yellow = 55789-1) Appearance of Urine (test code = clear clear 5767-9) Glucose [Mass/volume] in Urine negative negative (test code = 2350-7) bilirubin, urine (test code = negative negative bilirubin, urine) ketone, urine (test code = negative negative ketone, urine) Specific gravity of Urine by 1.010 1.003-1.030 Automated test strip (test code = 22276-6) Hemoglobin [Presence] in Urine by negative negative Test strip (test code = 5794-3) pH of Urine (test code = 2756-5) 6.500 5-9 protein urine (UA) (test code = negative negative protein urine (UA)) Urobilinogen [Presence] in Urine 0.2 E.U./dL 0.2-1.0 (test code = 53445-0) Nitrite [Presence] in Urine by negative negative Test strip (test code = 5802-4) urine leukocyte esterase (test =1 negative H code = urine leukocyte esterase) Erythrocytes [Presence] in Urine none seen 0-5 (test code = 91315-1) WBC, urine (test code = WBC, =0-5 0-5 urine) bacteria, urine (test code = moderate (2 none detect H bacteria, urine) Casts [#/area] in Urine sediment none seen none detect by Automated count (test code = 86576-1) urine culture added? (test code = yes urine culture added?) squamous epithelial cell urine =0-5 0-5 (test code = squamous epithelial cell urine) [facility] HospitalBacteria identified in Urine by [id number] 06:17:00 Test Item Value Reference Range Interpretation Comments Bacteria identified in scant skin romina Urine by Culture (test present after 2 days. code = 630-4) [facility] HospitalUrinalysis complete panel - [id number] 06:17:00 Test Item Value Reference Range Interpretation Comments Color of Urine by Auto (test code yellow = 43489-2) Appearance of Urine (test code = clear clear 5767-9) Glucose [Mass/volume] in Urine negative negative (test code = 2350-7) bilirubin, urine (test code = negative negative bilirubin, urine) ketone, urine (test code = negative negative ketone, urine) Specific gravity of Urine by 1.010 1.003-1.030 Automated test strip (test code = 86330-2) Hemoglobin [Presence] in Urine by negative negative Test strip (test code = 5794-3) pH of Urine (test code = 2756-5) 6.500 5-9 protein urine (UA) (test code = negative negative protein urine (UA)) Urobilinogen [Presence] in Urine 0.2 E.U./dL 0.2-1.0 (test code = 17039-7) Nitrite [Presence] in Urine by negative negative Test strip (test code = 5802-4) urine leukocyte esterase (test =1 negative H code = urine leukocyte esterase) Erythrocytes [Presence] in Urine none seen 0-5 (test code = 93328-8) WBC, urine (test code = WBC, =0-5 0-5 urine) bacteria, urine (test code = moderate (2 none detect H bacteria, urine) Casts [#/area] in Urine sediment none seen none detect by Automated count (test code = 43448-1) urine culture added? (test code = yes urine culture added?) squamous epithelial cell urine =0-5 0-5 (test code = squamous epithelial cell urine) [facility] HospitalBacteria identified in Urine by [id number] 06:17:00 Test Item Value Reference Range Interpretation Comments Bacteria identified in scant skin romina Urine by Culture (test present after 2 days. code = 630-4) [facility] HospitalCB W/AUTO [id number] 05:57:00 Test Item Value Reference Range Interpretation Comments WHITE BLOOD CELL (test code = WBC) 7.5 K/mm3 6.6-12.1 N RED BLOOD CELL (test code = RBC) 4.08 M/mm3 3.45-5.01 N HEMOGLOBIN (test code = HGB) 11.1 g/dL 10.7-13.9 N HEMATOCRIT (test code = HCT) 35.2 % 32.1-42.1 N MEAN CELL VOLUME (test code = MCV) 86 fL 84.1-94.8 N MEAN CELL HGB (test code = MCH) 27.2 pg 27-35 N MEAN CELL HGB CONCETRATION (test 31.5 gm/dL 32.2-34.1 L code = MCHC) RED CELL DISTRIBUTION WIDTH (test 14.4 % 12.4-16.5 N code = RDW) PLATELET COUNT (test code = PLT) 170 K/mm3 133-385 N IMMATURE PLATELET FRACTION (test 0.0 % 0.0-10.8 N code = IPF) MEAN PLATELET VOLUME (test code = 11.2 fl 9.1-12.7 N MPV) NEUTROPHIL % (test code = NT%) 67.6 % 56.5-79.4 N LYMPHOCYTE % (test code = LY%) 22.4 % 14.3-34.3 N MONOCYTE % (test code = MO%) 6.9 % 5.1-10.4 N EOSINOPHIL % (test code = EO%) 2.4 % 0.1-3.0 N BASOPHIL % (test code = BA%) 0.4 % 0.1-1.0 N NEUTROPHIL # (test code = NT#) 5.1 K/mm3 LYMPHOCYTE # (test code = LY#) 1.7 K/mm3 MONOCYTE # (test code = MO#) 0.5 K/mm3 EOSINOPHIL # (test code = EO#) 0.18 K/mm3 BASOPHIL # (test code = BA#) 0.0 K/mm3 RBC MORPHOLOGY REQUIRED (test code NORMAL NORMAL = RBCM) PLATELET MORPHOLOGY REQUIRED (test NORMAL NORMAL code = PLTMR)
[2021-03-19] MEDS ORDERED: IBUPROFEN 200 MG TAB PO ONE (09:02)
[2021-03-19] MEDS ORDERED: ACETAMINOPHEN 500 MG TAB ONE (09:02)
[2021-03-19] MEDS ORDERED: NA CHLORIDE 0.9% 2,000 ML ONE (09:16)
--- NOTE | 2021-03-19 09:30 | RAD REPORT ---
EXAM DESCRIPTION: RAD - Chest Single View - 03/19/2021 9:21 am CLINICAL HISTORY: Cough;Congestion Chest pain. COMPARISON: No comparisons FINDINGS: Portable technique limits examination quality. The lungs are grossly clear. The heart is normal in size. No displaced fractures. IMPRESSION: No acute intrathoracic process suspected.
[2021-03-19 09:41] LABS: Urine Blood 3+ (Negative); Urine Glucose Trace (Negative); Urine Protein 3+ (Negative); Urine Specific Gravity >=1.030 (1.005-1.030); Urine pH 6.5 (5.0-7.0)
[2021-03-19 10:45] LABS: Protime INR 1.2
[2021-03-19 10:51] LABS: Urine Bacteria >50 /HPF (<20); Urine RBC LOADED /HPF (NONE SEEN)
[2021-03-19 10:52] LABS: Urine Mucus 1+ /HPF (NONE SEEN)
[2021-03-19 11:02] LABS: ALT/SGPT 18 U/L (12-78); AST/SGOT 7 U/L (15-37); Albumin 3.3 g/dL (3.4-5.0); Alkaline Phosphatase 58 U/L (45-117); Amylase 39 U/L (25-115); BUN Blood Urea Nitrogen 6 mg/dL (7-18); Bicarbonate 23 mmol/L (21-32); Bilirubin Direct 0.1 mg/dL (0-0.2); Bilirubin Total 0.4 mg/dL (0.2-1.0); Creatine Phosphokinase 45 U/L (26-192); Glucose Level 114 mg/dL (74-106); Lipase 22 U/L (73-393); Protein, Total 7.9 g/dL (6.4-8.2); Sodium Level 134 mmol/L (136-145); Troponin (Emerg Dept Use Only) < 0.02 ng/mL (0.0-0.045)
[2021-03-19 11:03] LABS: CKMB Creatine Kinase MB < 1.0 ng/mL (1.0-3.6)
[2021-03-19 11:06] LABS: Potassium 2.9 mmol/L (3.5-5.1)
[2021-03-19 11:10] LABS: Absolute Lymphocytes (CBC) 0.7 K/uL (0.7-4.9); Hematocrit 38.7 % (36.0-45.0); MPV 10.5 fL (7.6-11.3); RBC Red Blood Cell Count 4.73 M/uL (3.86-4.86)
[2021-03-19 11:16] LABS: SARS-COV-2 RT PCR NEGATIVE (NEGATIVE)
[2021-03-19] MEDS ORDERED: NA CHLORIDE 0.9% 100 ML ONE ×2 (11:37→13:40)
[2021-03-19] MEDS ORDERED: CEFEPIME 1 GM/VIAL ONE ×2 (11:37→13:40)
--- NOTE | 2021-03-19 11:41 | RAD REPORT ---
EXAM DESCRIPTION: CT - Soft Tissue Neck W/Contr CLINICAL HISTORY: SORE THROAT Neck pain and swelling COMPARISON: No comparisons TECHNIQUE All CT scans are performed using dose optimization technique as appropriate and may includ e automated exposure control or mA/KV adjustment according to patient size. FINDINGS: Significant enlargement is seen of both palatine tonsils, slightly worse on the right. Flu id collection adjacent to the right palatine tonsils measuring 15 x 10 mm is noted suggesting a perit onsillar abscess. Edematous appearance is also seen to the lingual tonsils, greater on the right with out abscess. The fluid is seen extending inferiorly along the floor of the mouth on the right. Multiple enlarged lymph nodes are present along the jugular chain, largest on the right measuring 20 mm. Normal thyroid gland. No prevertebral fluid collection of significance seen. No prevertebral abscess. Visualized paranasal sinuses and mastoids are essentially clear. IMPRESSION: Significant tonsillar enlargement is present with 15 mm developing right-sided peritonsi llar abscess. Multiple enlarged jugular chain lymph nodes are present bilaterally, greatest on the right measuring up to 20 millimeters. These are favored to be reactive in etiology.
[2021-03-19] MEDS ORDERED: NS KCL 20MEQ 1,000 ML IV ONE (12:01)
[2021-03-19 12:07] LABS: Blood Morphology Comment NOT SEEN (NOT SEEN); Platelet Estimate ADEQ
[2021-03-19] MEDS ORDERED: METHYLPREDNISOLONE 40 MG INJ ONE (13:40)
--- NOTE | 2021-03-19 14:02 | EDPHYS ---
Physician Documentation [facility] Name: Heriberto Antoine Age: 31 yrs Sex: Female : 1990 Arrival Date: 03/19/2021 Time: 08:35 Bed 11 Private MD: ED Physician Adam Mark HPI: 03/19 09:20 This 31 yrs old Black Female presents to ER via Ambulatory with complaints of Sore kdr Throat, Covid Symptoms. 09:20 The patient presents with sore throat, Patient be patient began to have symptoms in the kdr last 24 to 36 hours. She has been tested a couple of days ago for Covid and was negative. She has had a positive exposure to Covid. She also states that she had a peritonsillar abscess a couple months ago was seen in [place] at that time. They put her on p.o. antibiotics and it seemed to improve. Today the patient continues with fever and chills and sore throat. She states that she is able to swallow liquids but has difficulty with solids. The patient describes throat pain as constant, raw. Onset: The symptoms/episode began/occurred gradually, Last 24 to 36 hours. Severity of symptoms: At their worst the symptoms were mild, moderate, just prior to arrival, in the emergency department the symptoms have resolved. Modifying factors: The symptoms are alleviated by nothing, the symptoms are aggravated by swallowing, Patient's oral intake status: unable to tolerate foods. Associated signs and symptoms: Pertinent positives: chills, cough, dysphagia, fever, flu-like symptoms, headache, Pertinent negatives chills, fever, nausea. The patient has experienced a previous episode, approximately 2 months ago. The patient has not recently seen a physician. 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 - Social history:: Smoking status: Patient reports the use of cigarette tobacco products, denies chronic smoking, but will smoke occasionally. ROS: 09:23 Constitutional: Negative for fever, chills, and weight loss, Eyes: Negative for injury, kdr pain, redness, and discharge, Neck: Negative for injury, pain, and swelling, Cardiovascular: Negative for chest pain, palpitations, and edema, Abdomen/GI: Negative for abdominal pain, nausea, vomiting, diarrhea, and constipation, Back: Negative for injury and pain, : Negative for injury, bleeding, discharge, and swelling, MS/Extremity: Negative for injury and deformity, Skin: Negative for injury, rash, and discoloration, Neuro: Negative for headache, weakness, numbness, tingling, and seizure activity. Psych: Negative for depression, anxiety, suicide ideation, homicidal ideation, and hallucinations, Allergy/Immunology: Negative for hives, rash, and allergies, Endocrine: Negative for neck swelling, polydipsia, polyuria, polyphagia, and marked weight changes, Hematologic/Lymphatic: Negative for swollen nodes, abnormal bleeding, and unusual bruising. 09:23 ENT: Positive for difficulty swallowing, sore throat, Negative for pulling at ears, Teeth pain :23 Respiratory: Positive for cough, "sounds productive". Exam: :23 Constitutional: This is a well developed, well nourished patient who is awake, alert, kdr and in no acute distress. Head/Face: Normocephalic, atraumatic. Eyes: Pupils equal round and reactive to light, extra-ocular motions intact. Lids and lashes normal. Conjunctiva and sclera are non-icteric and not injected. Cornea within normal limits. Periorbital areas with no swelling, redness, or edema. Neck: Trachea midline, no thyromegaly or masses palpated, and no cervical lymphadenopathy. Supple, full range of motion without nuchal rigidity, or vertebral point tenderness. No Meningismus. Chest/axilla: Normal chest wall appearance and motion. Nontender with no deformity. No lesions are appreciated. Cardiovascular: Regular rate and rhythm with a normal S1 and S2. No gallops, murmurs, or rubs. Normal PMI, no JVD. No pulse deficits. Respiratory: Lungs have equal breath sounds bilaterally, clear to auscultation and percussion. No rales, rhonchi or wheezes noted. No increased work of breathing, no retractions or nasal flaring. Abdomen/GI: Soft, non-tender, with normal bowel sounds. No distension or tympany. No guarding or rebound. No evidence of tenderness throughout. Back: No spinal tenderness. No costovertebral tenderness. Full range of motion. MS/ Extremity: Pulses equal, no cyanosis. Neurovascular intact. Full, normal range of motion. Neuro: Awake and alert, GCS 15, oriented to person, place, time, and situation. Cranial nerves II-XII grossly intact. Motor strength 5/5 in all extremities. Sensory grossly intact. Cerebellar exam normal. Normal gait. Psych: Awake, alert, with orientation to person, place and time. Behavior, mood, and affect are within normal limits. 09:23 ENT: Posterior pharynx: Tonsils: enlarged on the right, with erythema, with exudate, Uvula: edematous, erythema, Leftward deviation. Vital Signs: 08:48 BP 124 / 113; Pulse 123; Resp 16; Temp 102.5(O); Pulse Ox 100% ; Weight 77.56 kg; ll1 Height 5 ft. 6 in. (167.64 cm); 08:54 BP 127 / 98; ll1 11:46 Pulse 89; Resp 17; Temp 98.2; Pulse Ox 100% ; ll1 14:23 BP 137 / 94; Pulse 98; Resp 17; Pulse Ox 100% ; ll1 08:48 Body Mass Index 27.60 (77.56 kg, 167.64 cm) ll1 MDM: 09:23 Data reviewed: vital signs, nurses notes, lab test result(s), radiologic studies. kdr Counseling: I had a detailed discussion with the patient and/or guardian regarding: the historical points, exam findings, and any diagnostic results supporting the discharge/admit diagnosis, lab results, radiology results. 14:01 Patient medically screened. [facility] 03/19 08:56 Order name: Amylase, Serum kdr 03/19 08:56 Order name: Basic Metabolic Panel [facility] 03/19 08:56 Order name: Blood Culture Adult (2) kdr 03/19 08:56 Order name: CBC with Diff kdr 03/19 08:56 Order name: CPK; Complete Time: 11:17 kdr 03/19 08:56 Order name: Ckmb; Complete Time: 11:17 kdr 03/19 08:56 Order name: LFT's; Complete Time: 11:17 kdr 03/19 08:56 Order name: Lactate; Complete Time: 11:17 kdr 03/19 08:56 Order name: Lipase; Complete Time: 11:17 kdr 03/19 08:56 Order name: Procalcitonin; Complete Time: 11:22 kdr 03/19 08:56 Order name: Protime (+inr); Complete Time: 11:17 kdr 03/19 08:56 Order name: Ptt, Activated; Complete Time: 11:17 kdr 03/19 08:56 Order name: Troponin (emerg Dept Use Only); Complete Time: 11:17 kdr 03/19 08:56 Order name: Urine Microscopic Only; Complete Time: 11:17 kdr 03/19 08:56 Order name: Chest Single View XRAY; Complete Time: 11:17 kdr 03/19 08:57 Order name: Amylase; Complete Time: 11:17 EDMS 03/19 08:57 Order name: Basic Metabolic Panel; Complete Time: 11:17 EDMS 03/19 08:57 Order name: Blood Culture EDMS 03/19 08:57 Order name: CBC with Automated Diff; Complete Time: 14:00 EDMS 03/19 09:05 Order name: Strep [facility] 03/19 09:06 Order name: Group A Streptococcus Rapid Sc; Complete Time: 11:17 EDMS 03/19 09:40 Order name: Urine Dipstick-Ancillary; Complete Time: 11:17 EDSC 03/19 10:36 Order name: COVID-19/FLU A+B; Complete Time: 11:22 EDMS 03/19 10:52 Order name: Urine Culture EDSC 03/19 11:12 Order name: Manual Differential; Complete Time: 14:00 EDSC 03/19 11:14 Order name: Urine --Ancillary (enter results); Complete Time: 14:00 [facility] 03/19 08:56 Order name: Accucheck; Complete Time: 09:58 [facility] 03/19 08:56 Order name: Cardiac monitoring; Complete Time: 09:58 [facility] 03/19 08:56 Order name: EKG - Nurse/Tech; Complete Time: 09:58 kdr 03/19 08:56 Order name: IV Saline Lock - Large Bore; Complete Time: 09:58 kdr 03/19 08:56 Order name: Labs collected and sent; Complete Time: 09:58 [facility] 03/19 08:56 Order name: O2 Per Protocol; Complete Time: 09:58 [facility] 03/19 08:56 Order name: O2 Sat Monitoring; Complete Time: 09:58 [facility] 03/19 08:56 Order name: Urine Dipstick-Ancillary (obtain specimen); Complete Time: 09:58 [facility] 03/19 09:16 Order name: CT Soft Tissue Neck W/contr; Complete Time: 11:45 kdr Administered Medications: 09:04 Drug: Ibuprofen 600 mg Route: PO; [facility] 14:24 Follow up: Response: No adverse reaction 1 09:04 Drug: Tylenol 1000 mg Route: PO; [facility] 14:24 Follow up: Response: No adverse reaction [facility] 09:41 Drug: NS 0.9% (30 ml/kg) 30 ml/kg Route: IV; Rate: bolus; Site: right antecubital; [facility] 10:46 Follow up: Response: No adverse reaction; IV Status: Completed infusion [facility] 10:47 Drug: NS 0.9% (30 ml/kg) 30 ml/kg Route: IV; Rate: bolus; Site: right antecubital; [facility] 14:24 Follow up: Response: No adverse reaction; IV Status: Completed infusion 1 11:45 Drug: Cefepime 1 grams Route: IVPB; Rate: 200 ml/hr; Infused Over: 30 mins; Site: right ll1 antecubital; 12:18 Follow up: Response: No adverse reaction; IV Status: Completed infusion; IV Intake: ll1 100ml 12:11 Drug: Potassium Chloride 20 mEq Route: IV; Rate: calculated rate; Site: right ll1 antecubital; 14:25 Follow up: Response: No adverse reaction; IV Status: Completed infusion; IV Intake: ll1 1000ml 13:50 Drug: Cefepime 1 grams Route: IVPB; Rate: 200 ml/hr; Infused Over: 30 mins; Site: right ll1 antecubital; 14:25 Follow up: Response: No adverse reaction; IV Status: Completed infusion; IV Intake: ll1 100ml 13:51 Not Given (incorrect MD/connie): SOLU-Medrol (methylPREDNISolone sodium succinate) 80 ll1 mg IM once 13:52 Drug: SOLU-Medrol (methylPrednisoLONE) 80 mg Route: IVP; Site: right antecubital; 1 14:25 Follow up: Response: No adverse reaction ll1 Disposition Summary: 03/19/21 14:01 Discharge Ordered Location: Home kdr Problem: new kdr Symptoms: have improved kdr Condition: Stable kdr Diagnosis - Peritonsillar abscess kdr - Dysphagia kdr - Acute upper respiratory infection, unspecified kdr Followup: kdr - With: Private Physician - When: 7 - 10 days - Reason: If symptoms return, Further diagnostic work-up, Recheck today's complaints, Continuance of care, Re-evaluation by your physician Discharge Instructions: - Discharge Summary Sheet kdr - Peritonsillar Abscess kdr - Upper Respiratory Infection, Adult, [id number][place][id number] kdr Forms: - Medication Reconciliation Form kdr - Thank You Letter kdr Prescriptions: - Ibuprofen 600 mg Oral Tablet - take 1 tablet by ORAL route every 6 hours As needed take with food; 30 tablet; kdr Refills: 0, Product Selection Permitted - Zofran 4 mg Oral Tablet - take 1 tablet by ORAL route every 12 hours As needed; 6 tablet; Refills: 0, kdr Product Selection Permitted Signatures: Dispatcher [employer] EDMS Adam Mark MD MD kdr Priscila Sánchez RN RN ll1 Ailyn Castellanos RN RN jh6 Corrections: (The following items were deleted from the chart) 10:35 08:58 CORONAVIRUS+MR.LAB.BRZ ordered. EDMS EDMS 10:36 10:35 SARS-COV-2 RT PCR ordered. EDMS EDMS 10:37 08:58 Influenza Screen (A \\T\\ B)+BA.LAB.BRZ ordered. EDMS EDMS
--- NOTE | 2021-03-19 14:02 | ER ---
Nurse's Notes [facility] Name: Heriberto Antoine Age: 31 yrs Sex: Female : 1990 Arrival Date: 03/19/2021 Time: 08:35 Bed 11 Private MD: Diagnosis: Peritonsillar abscess;Dysphagia;Acute upper respiratory infection, unspecified Presentation: 03/19 08:48 Chief complaint: Patient states: symtoms since middle of the night; headache, fever ll1 (102.5 oral on site), congestion, body aches. Coronavirus screen: Vaccine status: Patient reports being unvaccinated. Client denies travel out of the [place] in the last 14 days. Client presents with at least one sign or symptom that may indicate coronavirus-19. Standard/surgical mask placed on the client. Ebola Screen: Patient negative for fever greater than or equal to 101.5 degrees Fahrenheit, and additional compatible Ebola Virus Disease symptoms Patient denies exposure to infectious person. Patient denies travel to an Ebola-affected area in the 21 days before illness onset. Initial Sepsis Screen: Does the patient meet any 2 criteria? Temp <36.0*C (96.8*F)) or > 38.3*C (100.9*F). HR > 90 bpm. Does the patient have a suspected source of infection? Yes: Productive cough/pneumonia. Risk Assessment: Do you want to hurt yourself or someone else? Patient reports no desire to harm self or others. Onset of symptoms was March 19, 2021. 08:48 Method Of Arrival: Ambulatory ll1 08:48 Acuity: KEVIN 3 ll1 Triage Assessment: 08:51 General: Appears uncomfortable, slender, well groomed, well developed, well nourished, ll1 Behavior is calm, cooperative, appropriate for age. Pain: Denies pain. EENT: Reports nasal congestion nasal discharge right ear soreness. 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 - Social history:: Smoking status: Patient reports the use of cigarette tobacco products, denies chronic smoking, but will smoke occasionally. Screenin:40 Abuse screen: Denies threats or abuse. Nutritional screening: No deficits noted. jh6 Tuberculosis screening: No symptoms or risk factors identified. Fall Risk None identified. Assessment: 09:45 Reassessment: No changes from previously documented assessment. Patient and/or family ll1 updated on plan of care and expected duration. Pain level reassessed. Patient is alert, oriented x 3, equal unlabored respirations, skin warm/dry/pink. 10:03 Respiratory: Airway is patent Respiratory effort is unlabored, Breath sounds are clear. jh6 EENT: No deficits noted. Throat is clear. 11:00 Reassessment: No changes from previously documented assessment. Patient and/or family ll1 updated on plan of care and expected duration. Pain level reassessed. Patient is alert, oriented x 3, equal unlabored respirations, skin warm/dry/pink. 12:00 Reassessment: No changes from previously documented assessment. Patient and/or family ll1 updated on plan of care and expected duration. Pain level reassessed. Patient is alert, oriented x 3, equal unlabored respirations, skin warm/dry/pink. 13:00 Reassessment: No changes from previously documented assessment. Patient and/or family ll1 updated on plan of care and expected duration. Pain level reassessed. Patient is alert, oriented x 3, equal unlabored respirations, skin warm/dry/pink. 14:00 Reassessment: No changes from previously documented assessment. Patient and/or family ll1 updated on plan of care and expected duration. Pain level reassessed. Patient is alert, oriented x 3, equal unlabored respirations, skin warm/dry/pink. 14:26 Reassessment: No changes from previously documented assessment. Patient and/or family ll1 updated on plan of care and expected duration. Pain level reassessed. Patient is alert, oriented x 3, equal unlabored respirations, skin warm/dry/pink. Vital Signs: 08:48 BP 124 / 113; Pulse 123; Resp 16; Temp 102.5(O); Pulse Ox 100% ; Weight 77.56 kg; ll1 Height 5 ft. 6 in. (167.64 cm); 08:54 BP 127 / 98; ll1 11:46 Pulse 89; Resp 17; Temp 98.2; Pulse Ox 100% ; ll1 14:23 BP 137 / 94; Pulse 98; Resp 17; Pulse Ox 100% ; ll1 08:48 Body Mass Index 27.60 (77.56 kg, 167.64 cm) ll1 ED Course: 08:35 Patient arrived in ED. mr 08:51 Triage completed. ll1 08:55 Adam Mark MD is Attending Physician. kdr 08:58 Ailyn Castellanos, HIMA is Primary Nurse. jh6 09:22 Chest Single View XRAY In Process Unspecified. EDMS 09:41 Strep Sent. jh6 09:58 Blood Culture Adult (2) Sent. jh6 09:58 Amylase, Serum Sent. jh6 09:58 Basic Metabolic Panel Sent. jh6 10:03 Call light in reach. jh6 10:04 Arm band placed on right wrist. jh6 11:08 Notified ED physician of a critical lab result(s). K+ 2.9. ll1 11:26 CT Soft Tissue Neck W/contr In Process Unspecified. EDMS 14:23 No provider procedures requiring assistance completed. IV discontinued, intact, ll1 bleeding controlled, No redness/swelling at site. Pressure dressing applied. Administered Medications: 09:04 Drug: Ibuprofen 600 mg Route: PO; jh6 14:24 Follow up: Response: No adverse reaction ll1 09:04 Drug: Tylenol 1000 mg Route: PO; jh6 14:24 Follow up: Response: No adverse reaction ll1 09:41 Drug: NS 0.9% (30 ml/kg) 30 ml/kg Route: IV; Rate: bolus; Site: right antecubital; jh6 10:46 Follow up: Response: No adverse reaction; IV Status: Completed infusion jh6 10:47 Drug: NS 0.9% (30 ml/kg) 30 ml/kg Route: IV; Rate: bolus; Site: right antecubital; jh6 14:24 Follow up: Response: No adverse reaction; IV Status: Completed infusion ll1 11:45 Drug: Cefepime 1 grams Route: IVPB; Rate: 200 ml/hr; Infused Over: 30 mins; Site: right ll1 antecubital; 12:18 Follow up: Response: No adverse reaction; IV Status: Completed infusion; IV Intake: ll1 100ml 12:11 Drug: Potassium Chloride 20 mEq Route: IV; Rate: calculated rate; Site: right ll1 antecubital; 14:25 Follow up: Response: No adverse reaction; IV Status: Completed infusion; IV Intake: ll1 1000ml 13:50 Drug: Cefepime 1 grams Route: IVPB; Rate: 200 ml/hr; Infused Over: 30 mins; Site: right ll1 antecubital; 14:25 Follow up: Response: No adverse reaction; IV Status: Completed infusion; IV Intake: ll1 100ml 13:51 Not Given (incorrect MD/routee): SOLU-Medrol (methylPREDNISolone sodium succinate) 80 ll1 mg IM once 13:52 Drug: SOLU-Medrol (methylPrednisoLONE) 80 mg Route: IVP; Site: right antecubital; ll1 14:25 Follow up: Response: No adverse reaction ll1 Intake: 12:18 IV: 100ml; Total: 100ml. ll1 14:25 IV: 1000ml; Total: 1100ml. ll1 14:25 IV: 100ml; Total: 1200ml. 1 Outcome: 14:01 Discharge ordered by . kdr 14:27 Discharged to home ambulatory. [facility] 14:27 Condition: stable 14:27 Discharge instructions given to patient, Instructed on discharge instructions, follow up and referral plans. medication usage, Demonstrated understanding of instructions, follow-up care, medications, Prescriptions given X 4. 14:27 Patient left the ED. [facility] Signatures: Dispatcher [employer] EDMS Adam Mark MD MD [facility], Shanice ng Priscila Sánchez, RN RN [facility] Ailyn Castellanos RN RN jh6 Corrections: (The following items were deleted from the chart) 10:37 09:04 Influenza Screen (A \T\ B)+BA.LAB.BRZ drawn and sent. [facility] [place]
[2021-03-19 14:34] VITALS: O2SAT 100
[2021-03-19 14:37] VITALS: TEMP 98.2
[2021-03-19 14:38] VITALS: BP 137/94
--- NOTE | 2021-03-26 09:29 | CON ---
Date of Consultation: 03/19/2021 Chief Complaint: Severe sore throat. History Of Present Illness: The patient is a pleasant 31-year-old female who presented to the emerge ncy room acutely for severe odynophagia and dysphagia secondary to inflamed bilateral tonsils. CT sc an was performed which demonstrated a questionable right peritonsillar abscess versus phlegmon. I wa s consulted for further evaluation and management. Upon arrival at bedside, the patient was in no ac augustine distress. She described the pain as severe, although improved after receiving medications of ishmael roids and antibiotics as well as pain medicine. She was able to tolerate liquids but still had signi ficant odynophagia and sore throat with decreased appetite and body aches. She denies fever, shortne ss of breath, chest pain, or other ears, nose, or throat complaints today. Past Medical History: None. Past Surgical History: The patient has a history of one prior peritonsillar abscess which was incise d and drained. Social History: Occasional smoker and occasional alcohol. No illicit drugs. Medications: None. Allergies: NONE. Review of Systems: Ears: Negative for otalgia, otorrhea, mastoid pain, hearing loss, or tinnitus. Nose: Negative for rhinorrhea, nasal congestion, postnasal drip. Throat: Positive for odynophagia, dysphagia, enlarged tonsils, resulting in chronic sore throat. Neck: Negative for lymph node enlargement or other neck mass. Physical Examination: Vital Signs: Stable. General: The patient is awake, alert, and oriented to person, place, and time. Ears: Bilateral external auditory canals patent. Tympanic membranes intact. Nose: Midline septum. Moist nasal mucosa. Nasal patency adequate. Oral Cavity: Bilateral tonsillar inflammation 3/4 with slightly shifted uvula to the left. Area pal pated, no definitive fluctuance palpated. Positive for exudate, bilateral tonsils. Positive for tico thema and edema. Airways patent. Neck: Supple. Trachea midline. No lymphadenopathy or thyromegaly palpated. Chest: No evidence of retractions, no evidence of stridor or airway difficulty. The patient is drin daphne fluids upon arrival to bedside. Diagnostic Data: CT scan of soft tissue neck with contrast was reviewed, and there is an inferior po cket of what could be an early abscess but appears more phlegmon to me in my opinion. I do not feel that incision and drainage is needed at this time. Left tonsil appears inflamed but no evidence of a bscess or phlegmon. Diagnosis: Recurrent acute tonsillitis. Plan: 1.Patient to receive one more dose of IV antibiotics, and I will start Solu-Medrol 80 mg and then we will convert to oral antibiotics and Medrol Dosepak. 2.The patient will follow up in 1 to 2 weeks for further recommendations. It was discussed at this point it is probably necessary that we do a tonsillectomy in the outpatient setting and she understoo d. 3.Continue to advance diet as tolerated. KD/MODL Voice ID: [id number] Report ID: [id number]
== END 2021-03-19 14:27 | disposition home or self-care (01) ==
LOC: ER 08:31
DX: J36 Peritonsillar abscess (principal); R13.10 Dysphagia, unspecified; J06.9 Acute upper respiratory infection, unspecified; Z20.822 Contact with and (suspected) exposure to COVID-19
CPT/HCPCS: 0240U; 36415; 70491; 71045; 80048; 80076; 81003; 81015; 81025; 82150; 82550; 82553; 83605; 83690; 84145; 84484; 85025; 85610; 85730; 87040; 87081; 87086; 87088; 96365; 96366; 96367; 96375; 99284; J0692; J2920; J3480; J7030; Q9967

== ENCOUNTER 2024-10-31 17:22 | Emergency (ER) | payer SELFPAY ==
[2024-10-31 18:47] LABS: Influenza A Ag Negative; Influenza B Ag Negative; SARS-CoV-2 Antigen Rapid Res Negative (Negative)
[2024-10-31 19:33] LABS: Absolute Lymphocytes (CBC) 1.0 K/uL (0.7-4.9); Hematocrit 35.7 % (36.0-45.0); Hemoglobin 11.6 g/dL (12.0-15.0); MCH 23.0 pg (27.0-35.0); MCHC 32.5 g/dL (32.0-36.0); MCV 70.6 fL (80-100); MPV 9.6 fL (7.6-11.3); Nucleated RBC Absolute Count 0.0 (0-0); Nucleated Red Blood Cells % 0.0 % (0-0); RBC Red Blood Cell Count 5.06 M/uL (3.86-4.86); White Blood Count 18.30 thou/uL (4.3-10.9)
[2024-10-31] MEDS ORDERED: NA CHLORIDE 0.9% 1,000 ML ONE ×2 (19:47→22:13)
[2024-10-31] MEDS ORDERED: ONDANSETRON 4 MG/2 ML VIAL ONE (19:47)
[2024-10-31] MEDS ORDERED: ACETAMINOPHEN 500 MG TAB ONE (19:47)
[2024-10-31 19:51] LABS: ALT/SGPT 39.0 U/L (13-56); AST/SGOT 19.0 U/L (15-37); Albumin 3.2 g/dL (3.4-5.0); Albumin/Globulin Ratio 0.8 (1.1-1.8); Alkaline Phosphatase 147.0 U/L (45-117); Anion Gap 12.2 mEq/L (5.0-15.0); BUN Blood Urea Nitrogen 8.0 mg/dL (7-18); Globulin 3.8 g/dL (2.3-3.5); Glucose Level 107.0 mg/dL (74-106); Lipase 11.0 U/L (13-75); Potassium 3.2 mEq/L (3.5-5.1)
[2024-10-31 19:54] LABS: Sqamous Epithelial <5 /HPF (None Seen); Urine Culture Reflex Order NOT NEEDED; Urine Microscopic Reflex YN ORDER UMIC
[2024-10-31 20:31] LABS: Blood Morphology Comment NOT SEEN (NOT SEEN); White Blood Cell Scan OK (OK)
--- NOTE | 2024-10-31 21:00 | RAD REPORT ---
EXAMINATION: Abdomen Pelvis W Contrast CLINICAL INDICATION: Female, 34 years old.ABD PAIN TECHNIQUE: CT abdomen and pelvis was performed, after the administration of IV contrast, [facility]. Axial, sagittal and coronal reconstructions were obtained. One or more of the following dose reduction techniques were used: Automated exposure control, adjustment of the mA and/o r kV according to patient size, and/or iterative reconstruction. Unless otherwise specified, incidental findings do not require dedicated imaging follow-up. [id number]. COMPARISON: No prior exams FINDINGS: LOWER CHEST: No acute process identified.No significant pericardial effusion. Moderate circumferentia l thickening of the distal esophagus which could reflect esophagitis. Endoscopy could better evaluate. UPPER GI: No significant abnormality. LIVER: Benign appearing low density liver lesions. No suspicious mass. GALLBLADDER/BILE DUCTS: No biliary ductal dilatation.? PANCREAS: No mass, ductal dilation, or gege-pancreatic fluid. SPLEEN: Mild splenomegaly. ADRENALS: No adrenal masses. KIDNEYS AND URETERS: No hydronephrosis.Indeterminate bilateral renal lesions including an 11 mm inter mediate attenuation left interpolar renal lesion.No renal calculi.No ureteral calculi. ABDOMINAL AORTA AND OTHER VESSELS: Normal caliber aorta and IVC. PERITONEUM: No abnormal free fluid. No free air. LYMPH NODES: No pathologic lymphadenopathy. ABDOMINAL WALL: Unremarkable SMALL BOWEL/COLON: Small bowel has normal course and caliber. No colonic wall thickening or pericolon ic inflammatory changes.Normal appendix. URINARY BLADDER: Underdistended but grossly unremarkable. REPRODUCTIVE ORGANS: No pathologic process. MUSCULOSKELETAL: No acute or suspicious osseous abnormality. ADDITIONAL FINDINGS: None. IMPRESSION: No acute findings within the abdomen or pelvis. Indeterminate renal lesions bilaterally. Recommend nonemergent renal protocol CT or MRI.
--- NOTE | 2024-10-31 22:16 | EDPHYS ---
Physician Documentation [facility] Name: Heriberto Antoine Age: 34 yrs Sex: Female : 1990 Arrival Date: 10/31/2024 Time: 17:22 Bed 16 Private MD: ED Physician Antony Vuong HPI: 10/31 19:23 This 34 yrs old Black Female presents to ER via Ambulatory with complaints of Body kb aches, Vomiting, Headache. 19:23 Patient is a 34-year-old female who presents for sore throat, nausea, vomiting, kb diarrhea, headache, body aches that started last night. Reports possible subjective fever. Denies cough, congestion, runny nose.. 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 - Infectious Disease History:: Denies. - Social history:: Smoking status: Patient reports the use of cigarette tobacco products, smokes one-half pack cigarettes per day. ROS: 19:24 Constitutional: As per HPI kb Exam: 19:24 Head/Face: Normocephalic, atraumatic. ENT: Moist Mucous membranes Cardiovascular: kb Regular rate Respiratory: Respirations even and unlabored. No increased work of breathing. Talking in full sentences Abdomen/GI: Soft, non-tender. No distention Skin: Warm, dry with normal turgor. Normal color. MS/ Extremity: Pulses equal, no cyanosis. Neurovascular intact. Full, normal range of motion. Neuro: Awake and alert, GCS 15, oriented to person, place, time, and situation. 19:24 Constitutional: The patient appears alert, awake, uncomfortable, Vital Signs: 18:16 BP 95 / 75; Pulse 122; Resp 19; Temp 99.9; Pulse Ox 100% on R/A; Weight 70.31 kg; dd2 Height 5 ft. 6 in. ; Pain 10/10; 19:30 BP 139 / 96; Pulse 114; Resp 18; Pulse Ox 100% ; rg5 20:27 BP 129 / 100; Pulse 107; Resp 18; Pain 5/10; rg5 23:00 BP 128 / 83; Pulse 102; Resp 18; Temp 98.2; Pulse Ox 99% on R/A; Pain 0/10; rg5 18:16 Body Mass Index 25.02 (70.31 kg, 167.64 cm) dd2 18:16 Pain Scale: Adult dd2 20:27 Pain Scale: Adult rg5 23:00 Pain Scale: Adult rg5 MDM: 17:53 Medical Screening Exam initiated kb 22:13 Data reviewed: vital signs, nurses notes. kb 22:13 Differential diagnosis: viral illness, dehydration, abnormal electrolytes, uti, kb colitis. Consideration of Admission/Observation Escalation of care including admission/observation considered. admission considered but pt has no source of infection. Pt is feeling better after treatment and in agreement with outpatient treatment. Return precautions given. I considered the following discharge prescriptions or medication management in the emergency department I discussed and recommended Over The Counter medications, Antibiotics: At this time antibiotics are not recommended. Historians other than the Patient: Spouse/Significant Other: spouse. Counseling: I had a detailed discussion with the patient and/or guardian regarding the historical points, exam findings, and any diagnostic results supporting the discharge/admit diagnosis, lab results, radiology results, the need for outpatient follow up, a family practitioner, to return to the emergency department if symptoms worsen or persist or if there are any questions or concerns that arise at home. 10/31 18:20 Order name: COVID-19 Ag + Flu A+B Ag; Complete Time: 18:58 kb 10/31 18:23 Order name: Group A Streptococcus Rapid; Complete Time: 18:45 kb 10/31 18:23 Order name: CBC with Diff; Complete Time: 20:31 kb 10/31 18:23 Order name: CMP; Complete Time: 19:54 kb 10/31 18:23 Order name: Lipase; Complete Time: 19:54 kb 10/31 18:23 Order name: Test, Urine; Complete Time: 19:55 kb 10/31 18:23 Order name: [place] Screen Profile; Complete Time: 22:04 kb 10/31 18:23 Order name: UA Rfx Yefri Cult if indicated; Complete Time: 19:54 kb 10/31 18:42 Order name: Throat Culture EDMS 10/31 20:31 Order name: CBC Smear Scan; Complete Time: 20:31 EDNV 10/31 19:54 Order name: CT Abd/Pelvis - IV Contrast Only; Complete Time: 21:14 kb 10/31 18:23 Order name: IV Saline Lock; Complete Time: 19:44 kb 10/31 18:23 Order name: Labs collected and sent; Complete Time: 19:44 kb 10/31 19:48 Order name: Misc. Order: RECOLLECT MONO (RED TOP); Complete Time: 21:02 rv1 Administered Medications: 19:40 Drug: Ondansetron IVP 4 mg IVP once; over 2 minutes Route: IVP; Site: left antecubital; rg5 20:33 Follow up: Response: No adverse reaction rg5 19:40 Drug: NS 0.9% IV 1000 ml IV at 1 bolus Per protocol; to be given as a bolus over 60 rg5 minutes Route: IV; Rate: 1 bolus; Site: left antecubital; 23:16 Follow up: IV Status: Completed infusion; IV Intake: 1000ml rg5 19:40 Drug: Acetaminophen PO 1000 mg PO once Route: PO; rg5 20:18 Follow up: Response: No adverse reaction; Pain is decreased rg5 22:15 Drug: NS 0.9% IV 1000 ml IV at 1000 ml once; to be given as a bolus over 60 minutes rg5 Route: IV; Rate: 1000 ml; Site: right antecubital; 23:16 Follow up: IV Status: Completed infusion rg5 Disposition Summary: 10/31/24 22:15 Discharge Ordered Notes: Location: Home kb Condition: Stable kb Diagnosis - Diarrhea, unspecified kb - Viral infection, unspecified kb Followup: kb - With: Emergency Department - When: As needed - Reason: Worsening of condition Followup: kb - With: Private Physician - When: 2 - 3 days - Reason: Recheck today's complaints, Continuance of care, Re-evaluation by your physician Discharge Instructions: - Discharge Summary Sheet kb - Food Choices to Help Relieve Diarrhea, Adult kb - Diarrhea, Adult, [id number]-Viya kb - Viral Illness, Adult kb Forms: - Medication Reconciliation Form kb - Antibiotic Education kb - Prescription Opioid Use kb - Patient Portal Instructions kb - Leadership Thank You Letter kb Prescriptions: - ondansetron 4 mg Oral Tablet,disintegrating - take 1 tablet ORAL route every 6 hours as needed for nausea and vomiting; 12 kb tablet; Refills: 0, Product Selection Permitted Addendum: 11/03/2024 14:33 Co-signature as Attending Physician, Antony Vuong MD I agree with the assessment and c cobb plan of care. Signatures: Dispatcher [employer] Cindy Julien, CROP INSURANCE CLAIMS ADJUSTER-C CROP INSURANCE CLAIMS ADJUSTER-Antony Dozier MD MD cha Villegas, Rebecca rv1 Micah Dover, RN RN rg5 LAMAR ACHARYA RN RN dd2
--- NOTE | 2024-10-31 22:16 | ER ---
Nurse's Notes [facility] Name: Heriberto Antoine Age: 34 yrs Sex: Female : 1990 Arrival Date: 10/31/2024 Time: 17:22 Bed 16 Private MD: Diagnosis: Diarrhea, unspecified;Viral infection, unspecified Presentation: 10/31 18:16 Chief complaint: Patient states: BODY ACHES, VOMITING, NAUSEA, DIARRHEA BEGINNING LAST dd2 NIGHT. Coronavirus screen: diarrhea, fatigue, fever, muscle pain, nausea, vomiting. Ebola Screen: No symptoms or risks identified at this time. Initial Sepsis Screen: Does the patient meet any 2 criteria? No. Patient's initial sepsis screen is negative. Does the patient have a suspected source of infection? No. Patient's initial sepsis screen is negative. Risk Assessment: Do you want to hurt yourself or someone else? Patient reports no desire to harm self or others. Onset of symptoms was October 30, 2024. 18:16 Method Of Arrival: Ambulatory dd2 18:16 Acuity: KEVIN 3 dd2 Triage Assessment: 18:18 General: Appears in no apparent distress. uncomfortable, Behavior is calm, cooperative, dd2 appropriate for age. Pain: Complains of pain in GENERALIZED MUSCLES. GI: Reports diarrhea, nausea, vomiting. 18:22 EENT: Reports nasal congestion pain when swallowing. 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 - Infectious Disease History:: Denies. - Social history:: Smoking status: Patient reports the use of cigarette tobacco products, smokes one-half pack cigarettes per day. Screenin:30 [facility] ED Fall Risk Assessment (Adult) History of falling in the last 3 months, rg5 including since admission No falls in past 3 months (0 pts) Confusion or Disorientation No (0 pts) Intoxicated or Sedated No (0 pts) Impaired Gait No (0 pts) Mobility Assist Device Used No (0 pt) Altered Elimination No (0 pt) Score/Fall Risk Level 0 - 2 = Low Risk Oriented to surroundings, Maintained a safe environment. Abuse screen: Denies threats or abuse. Nutritional screening: No deficits noted. Tuberculosis screening: No symptoms or risk factors identified. Assessment: 18:30 General: Appears uncomfortable, Behavior is calm, cooperative, appropriate for age. rg5 18:30 Pain: Complains of pain in abdomen Quality of pain is described as aching. Neuro: Level rg5 of Consciousness is awake, alert, obeys commands, Oriented to person, place, time, situation. Cardiovascular: Patient's skin is warm and dry. Respiratory: Airway is patent Trachea midline Respiratory effort is even, Respiratory pattern is regular, symmetrical. GI: Abdomen is round Reports lower abdominal pain, upper abdominal pain, diarrhea, nausea, vomiting. : No signs and/or symptoms were reported regarding the genitourinary system. EENT: No signs and/or symptoms were reported regarding the EENT system. Derm: Skin is intact, Skin is dry, Skin is normal. Musculoskeletal: Circulation, motion, and sensation intact. Range of motion: intact in all extremities. 19:35 Reassessment: No changes from previously documented assessment. Patient and/or family rg5 updated on plan of care and expected duration. Pain level reassessed. Patient is alert, oriented x 3, equal unlabored respirations, skin warm/dry/pink. 20:27 Reassessment: Patient and/or family updated on plan of care and expected duration. Pain rg5 level reassessed. Patient is alert, oriented x 3, equal unlabored respirations, skin warm/dry/pink. 21:30 Reassessment: Patient and/or family updated on plan of care and expected duration. Pain rg5 level reassessed. Patient is alert, oriented x 3, equal unlabored respirations, skin warm/dry/pink. Patient states feeling better. Vital Signs: 18:16 BP 95 / 75; Pulse 122; Resp 19; Temp 99.9; Pulse Ox 100% on R/A; Weight 70.31 kg; dd2 Height 5 ft. 6 in. ; Pain 10/10; 19:30 BP 139 / 96; Pulse 114; Resp 18; Pulse Ox 100% ; rg5 20:27 BP 129 / 100; Pulse 107; Resp 18; Pain 5/10; rg5 23:00 BP 128 / 83; Pulse 102; Resp 18; Temp 98.2; Pulse Ox 99% on R/A; Pain 0/10; rg5 18:16 Body Mass Index 25.02 (70.31 kg, 167.64 cm) dd2 18:16 Pain Scale: Adult dd2 20:27 Pain Scale: Adult rg5 23:00 Pain Scale: Adult rg5 ED Course: 17:24 Patient arrived in ED. mr 17:41 Cindy Ellis, [facility]. kb 17:41 Antony Vuong MD is Attending Physician. kb 18:18 Triage completed. dd2 18:18 Arm band placed on right wrist. dd2 18:30 Patient has correct armband on for positive identification. Bed in low position. Door rg5 closed. Noise minimized. Warm blanket given. 18:30 No provider procedures requiring assistance completed. rg5 19:07 Micah Dover, HIMA is Primary Nurse. rg5 19:18 Missed attempt(s): 20 gauge in right forearm. Bleeding controlled, band aid applied, oh1 catheter tip intact. 19:20 Inserted saline lock: 20 gauge in left forearm, using aseptic technique. Blood oh1 collected. Flushed with 10 mL NS. 20:45 CT Abd/Pelvis - IV Contrast Only In Process Unspecified. EDMS 23:11 IV discontinued, bleeding controlled, No redness/swelling at site. Pressure dressing rg5 applied. Administered Medications: 19:40 Drug: Ondansetron IVP 4 mg IVP once; over 2 minutes Route: IVP; Site: left antecubital; rg5 20:33 Follow up: Response: No adverse reaction rg5 19:40 Drug: NS 0.9% IV 1000 ml IV at 1 bolus Per protocol; to be given as a bolus over 60 rg5 minutes Route: IV; Rate: 1 bolus; Site: left antecubital; 23:16 Follow up: IV Status: Completed infusion; IV Intake: 1000ml rg5 19:40 Drug: Acetaminophen PO 1000 mg PO once Route: PO; rg5 20:18 Follow up: Response: No adverse reaction; Pain is decreased rg5 22:15 Drug: NS 0.9% IV 1000 ml IV at 1000 ml once; to be given as a bolus over 60 minutes rg5 Route: IV; Rate: 1000 ml; Site: right antecubital; 23:16 Follow up: IV Status: Completed infusion rg5 Medication: 18:30 VIS not applicable for this client. rg5 Intake: 23:16 IV: 1000ml; Total: 1000ml. rg5 Outcome: 22:15 Discharge ordered by MD. otoole 23:10 Discharged to home ambulatory, rg5 23:10 Condition: stable 23:10 Discharge instructions given to patient, family, Instructed on discharge instructions, Demonstrated understanding of instructions, follow-up care, Prescriptions given X 1, 23:18 Patient left the ED. rg5 Signatures: Dispatcher [employer] EDMS Cindy Ellis, OPTICAL TECHNICIAN-C OPTICAL TECHNICIAN-CkShanice Caba, Reg Reg mr StanislawMicah, RN RN rg5 LAMAR ACHARYA RN RN dd2 Hayden, Ivis oh1 Corrections: (The following items were deleted from the chart) 18:22 18:18 GI: Reports diarrhea, nausea, vomiting, dd2 dd2 20:15 16:40 Acetaminophen PO 1000 mg PO rg5 rg5 20:17 09:40 NS 0.9% IV 1000 ml IV at 1 bolus in left antecubital rg5 rg5
[2024-10-31 23:38] VITALS: BP 128/83; TEMP 98.2; O2SAT 99
== END 2024-10-31 23:18 | disposition home or self-care (01) ==
LOC: ER 17:22
DX: B34.9 Viral infection, unspecified (principal); F17.210 Nicotine dependence, cigarettes, uncomplicated; Z11.52 Encounter for screening for COVID-19
CPT/HCPCS: 36415; 74177; 80053; 81001; 81025; 83690; 85025; 86308; 87070; 87428; 96361; 96374; 99284; J2405; J7030; Q9967